=== PATIENT | female | born 1980 | race Caucasian/White ===

== ENCOUNTER 2017-01-01 04:34 | Emergency (ER) | payer OTHER ==
--- NOTE | 2017-01-01 04:44 | EDM.PDOC ---
ED HPI Behavioral Health - General Chief Complaint: Drug or Alcohol Abuse Stated Complaint: DRUG OVERDOSE-KAMILA AMB Time Seen by Provider: 01/01/17 04:38 Source of Information: Reports: Patient, EMS, Other (neighbour-friend of pt's boy friend) Exam Limitations: Reports: Combative/threatening - History of Present Illness INITIAL COMMENTS - FREE TEXT/NARRATIVE: friend states pt called him telling him she wants to end it all and took bunch of pills, found dorflex & benadryl & unknown ones. also Pt been associating with known drug users. pt arrived combative screaming trying to kick and P.D called and manage to calm Pt somewhat. poison control state dorflex (from [place] ) & beneadryl are anticholinergic need obsv for tachy-halluncination. benadryl bottle 100 2014. dorflex in blister pack of 10. unknown quantities taken. - Related Data Allergies Allergy/AdvReac Type Severity Reaction Status Date / Time acetaminophen [From Tylenol] Allergy Cannot Verified 01/01/17 04:45 Remember codeine Allergy Hives Verified 01/01/17 04:45 morphine Allergy Rash Verified 01/01/17 04:45 ciprofloxacin [From Cipro] AdvReac Rash Verified 01/01/17 04:45 ciprofloxacin HCl AdvReac Rash Verified 01/01/17 04:45 [From Cipro] bees Allergy Swelling Uncoded 01/01/17 04:45 Home Medications: Home Meds Albuterol [Proventil HFA] 2 puff INH ASDIRECTED PRN 08/16/16 [History] Ibuprofen 600 mg PO ASDIRECTED PRN 08/16/16 [History] Ketorolac [Toradol] 10 mg PO Q6H PRN 08/16/16 [History] Omeprazole 20 mg PO DAILY 08/16/16 [History] Past Medical History - Past Health History Medical/Surgical History: Denies Medical/Surgical History HEENT History: Reports: Sinusitis Other Cardiovascular History: states heart murmur is sometimes audible, sometimes not Respiratory History: Reports: Asthma, Bronchitis, recurrent Gastrointestinal History: Reports: Diverticulosis, GERD Other Gastrointestinal History: ? 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 OB/BYN History: 5 pregnancies Musculoskeletal History: Reports: Other (see below) Other Musculoskeletal History: muscle spasms, herniated disc Neurological History: Reports: Concussion Other Neuro History: unsure if she has had a concussion or not Psychiatric History: Reports: Anxiety, Depression, Emotional problems, Mood swings, PTSD Endocrine/Metabolic History: Reports: Other (see below) Other Endocrine/Metabolic History: while , not specifically diagnosed, hypoglycemia at times Hematologic History: Reports: Anemia Immunologic History: Reports: None Oncologic (Cancer) History: Reports: None Dermatologic History: Reports: None - Infectious Disease History Infectious Disease History: Reports: Chicken pox - Past Surgical History Head Surgeries/Procedures: Reports: None Other HEENT Surgeries/Procedures: two eye surgeries as a child Respiratory Surgical History: Reports: None Female Surgical History: Reports: section Other Female Surgeries/Procedures: x3 Social & Family History - Family History Family Medical History: Noncontributory - Tobacco Use Smoking Status *Q: Current Every Day Smoker Years of Tobacco use: 1 Packs/Tins Daily: 0.5 Used Tobacco, but Quit: Yes Month Tobacco Last Used: march Second Hand Smoke Exposure: No - Caffeine Use Caffeine Use: Reports: Soda - Alcohol Use Days Per Week of Alcohol Use: 3 Number of Drinks Per Day: 3 Total Drinks Per Week: 9 - Recreational Drug Use Recreational Drug Use: No - Sexual History Sexual History: Reports: Sexually active - Living Situation & Occupation Living situation: Reports: with family Occupation: unemployed ED ROS GENERAL - Review of Systems Review Of Systems: ROS reveals no pertinent complaints other than HPI. ED EXAM, BEHAVIORAL HEALTH - Physical Exam Exam: See Below Exam Limited By: Combative/threatening General Appearance: alert, WD/WN, other (screaming kicking combative requiring P.D presence) Ears: hearing grossly normal Throat/Mouth: Normal voice, No airway compromise Head: atraumatic Neck: normal inspection, full range of motion Respiratory/Chest: no respiratory distress Cardiovascular: regular rate, rhythm GI/Abdominal: soft, non tender Neurological: alert, no motor/sensory deficits Psychiatric: alert, normal cognition, tearful, agitated Skin Exam: Warm, Dry COURSE, BEHAVIORAL HEALTH COMP - Course Vital Signs: Last Vital Signs Temp 36.6 C 01/01/17 04:38 Pulse 93 01/01/17 05:33 Resp 18 01/01/17 05:33 BP 135/85 01/01/17 05:33 Pulse Ox 100 01/01/17 05:33 Orders, Labs, Meds: Active Orders 24 hr Category Date Time Status Potassium Chloride [KCl 10 MEQ in Water 100 ML] 10 meq Med 01/01/17 05:13 Active Premix Bag 1 bag IV ONETIME Sodium Chloride 0.9% [Normal Saline] 1,000 ml Med 01/01/17 05:13 Active IV .BOLUS Medication Orders Potassium Chloride 10 meq/ (Premix) 100 mls @ 100 mls/hr IV ONETIME ONE Stop: 01/01/17 06:12 Last Admin: 01/01/17 05:27 Dose: 100 mls/hr Sodium Chloride (Normal Saline) 1,000 mls @ 500 mls/hr IV .BOLUS ONE Stop: 01/01/17 07:12 Last Admin: 01/01/17 05:32 Dose: 500 mls/hr Laboratory Tests 01/01/17 01/01/17 01/01/17 Range/Units 04:40 04:40 04:50 WBC 6.9 (5.0-10.0) 10^3/uL RBC 3.99 L (4.2-5.4) 10^6/uL Hgb 12.0 (12.0-16.0) g/dL Hct 35.0 L (37.0-47.0) % MCV 87.7 (80-100) fL MCH 30.1 (27.0-34.0) pg MCHC 34.3 (33.0-35.0) g/dL Plt Count 324 (150-450) 10^3/uL Neut % (Auto) 57.9 (42.2-75.2) % Lymph % (Auto) 34.0 (20.5-50.1) % Edd[place] % (Auto) 6.9 (2-8) % Eos % (Auto) 0.9 L (1.0-3.0) % Baso % (Auto) 0.3 (0.0-1.0) % Sodium 138 (135-145) mmol/L Potassium 2.4 L (3.6-5.0) mmol/L Chloride 103 (101-111) mmol/L Carbon Dioxide 21.0 (21.0-31.0) mmol/L Anion Gap 16.4 BUN 5 L (7-18) mg/dL Creatinine 0.8 (0.6-1.3) mg/dL Est Cr Clr Drug Dosing TNP Estimated GFR (MDRD) > 60 BUN/Creatinine Ratio 6.25 Glucose 107 H (74-105) mg/dL Calcium 8.4 (8.4-10.2) mg/dl Total Bilirubin 0.4 (0.2-1.0) mg/dL AST 22 (10-42) IU/L ALT 13 (10-60) IU/L Alkaline Phosphatase 66 (42-121) IU/L Total Protein 7.6 (6.7-8.2) g/dl Albumin 4.1 (3.2-5.5) g/dl Globulin 3.5 Albumin/Globulin Ratio 1.17 Urine Color Light yellow (YELLOW) Urine Appearance Clear (CLEAR) Urine pH 5.5 (5.0-9.0) Ur Specific [place] <= 1.005 (1.005-1.030) Urine Protein Negative (NEGATIVE) Urine Glucose (UA) Negative (NEGATIVE) Urine Ketones Negative (NEGATIVE) Urine Occult Blood Trace-lysed H (NEGATIVE) Urine Nitrite Negative (NEGATIVE) Urine Bilirubin Negative (NEGATIVE) Urine Urobilinogen 0.2 (0.2-1.0) mg/dL Ur Leukocyte Esterase Negative (NEGATIVE) Urine HCG, Qual Salicylates 4.2 Urine Opiates Screen (NEGATIVE) Ur Oxycodone Screen (NEGATIVE) Urine Methadone Screen (NEGATIVE) Acetaminophen < 10.0 Ur Barbiturates Screen (NEGATIVE) U Tricyclic Antidepress (NEGATIVE) Ur Phencyclidine Scrn (NEGATIVE) Ur Amphetamine Screen (NEGATIVE) U Methamphetamines Scrn (NEGATIVE) Urine MDMA Screen (NEGATIVE) U Benzodiazepines Scrn (NEGATIVE) Urine Cocaine Screen (NEGATIVE) U Marijuana (THC) Screen (NEGATIVE) Ethyl Alcohol 154 mg/dL 01/01/17 01/01/17 Range/Units 04:50 04:50 WBC (5.0-10.0) 10^3/uL RBC (4.2-5.4) 10^6/uL Hgb (12.0-16.0) g/dL Hct (37.0-47.0) % MCV (80-100) fL MCH (27.0-34.0) pg MCHC (33.0-35.0) g/dL Plt Count (150-450) 10^3/uL Neut % (Auto) (42.2-75.2) % Lymph % (Auto) (20.5-50.1) % Eddy % (Auto) (2-8) % Eos % (Auto) (1.0-3.0) % Baso % (Auto) (0.0-1.0) % Sodium (135-145) mmol/L Potassium (3.6-5.0) mmol/L Chloride (101-111) mmol/L Carbon Dioxide (21.0-31.0) mmol/L Anion Gap BUN (7-18) mg/dL Creatinine (0.6-1.3) mg/dL Est Cr Clr Drug Dosing Estimated GFR (MDRD) BUN/Creatinine Ratio Glucose (74-105) mg/dL Calcium (8.4-10.2) mg/dl Total Bilirubin (0.2-1.0) mg/dL AST (10-42) IU/L ALT (10-60) IU/L Alkaline Phosphatase (42-121) IU/L Total Protein (6.7-8.2) g/dl Albumin (3.2-5.5) g/dl Globulin Albumin/Globulin Ratio Urine Color (YELLOW) Urine Appearance (CLEAR) Urine pH (5.0-9.0) Ur Specific [place] (1.005-1.030) Urine Protein (NEGATIVE) Urine Glucose (UA) (NEGATIVE) Urine Ketones (NEGATIVE) Urine Occult Blood (NEGATIVE) Urine Nitrite (NEGATIVE) Urine Bilirubin (NEGATIVE) Urine Urobilinogen (0.2-1.0) mg/dL Ur Leukocyte Esterase (NEGATIVE) Urine HCG, Qual Negative Salicylates Urine Opiates Screen Negative (NEGATIVE) Ur Oxycodone Screen Negative (NEGATIVE) Urine Methadone Screen Negative (NEGATIVE) Acetaminophen Ur Barbiturates Screen Negative (NEGATIVE) U Tricyclic Antidepress Negative (NEGATIVE) Ur Phencyclidine Scrn Negative (NEGATIVE) Ur Amphetamine Screen Negative (NEGATIVE) U Methamphetamines Scrn Negative (NEGATIVE) Urine MDMA Screen Negative (NEGATIVE) U Benzodiazepines Scrn Negative (NEGATIVE) Urine Cocaine Screen Negative (NEGATIVE) U Marijuana (THC) Screen Negative (NEGATIVE) Ethyl Alcohol mg/dL Medications Generic Name Dose Route Start Last Admin Trade Name Freq PRN Reason Stop Dose Admin Potassium Chloride 10 meq/ 100 mls @ 100 mls/hr 01/01/17 05:13 01/01/17 05:27 Premix IV 01/01/17 06:12 100 mls/hr ONETIME ONE Administration Sodium Chloride 1,000 mls @ 500 mls/hr 01/01/17 05:13 01/01/17 05:32 Normal Saline IV 01/01/17 07:12 500 mls/hr .BOLUS ONE Administration Re-Assessment/Re-Exam: re-exam: Pt still quite calm P.D left. case discussed with Dr Lewis @ who kindly accepted Pt. Departure - Departure Time of Disposition: 06:06 Disposition: DC/Tfer to Acute Hospital 02 Condition: good Clinical Impression: Anticholinergic drug overdose Qualifiers: Encounter type: initial encounter Injury intent: intentional self-harm Qualified Code(s): T44.3X2A - Poisoning by other parasympatholytics [ anticholinergics and antimuscarinics] and spasmolytics, intentional self-harm, initial encounter Alcohol intoxication Qualifiers: Complication of substance-induced condition: uncomplicated Qualified Code(s): F10.120 - Alcohol abuse with intoxication, uncomplicated Forms: Interfacility Transfer EMTALA - My Orders Last 24 Hours: My Active Orders 01/01/17 05:13 Potassium Chloride [KCl 10 MEQ in Water 100 ML] 10 meq Premix Bag 1 bag IV ONETIME Sodium Chloride 0.9% [Normal Saline] 1,000 ml IV .BOLUS - Assessment/Plan Last 24 Hours: My Active Orders 01/01/17 05:13 Potassium Chloride [KCl 10 MEQ in Water 100 ML] 10 meq Premix Bag 1 bag IV ONETIME Sodium Chloride 0.9% [Normal Saline] 1,000 ml IV .BOLUS
[2017-01-01 05:11] LABS: SODIUM,NA 138 mmol/L (135-145)
[2017-01-01 05:12] LABS: CHLORIDE,CL 103 mmol/L (101-111)
[2017-01-01] MEDS ORDERED: Potassium Chloride 10 MEQ in Premix Bag 1 BAG IV ONE (05:13)
[2017-01-01] MEDS ORDERED: Sodium Chloride 0.9% 1,000 ML IV ONE (05:13)
[2017-01-01 05:14] LABS: ACETAMINOPHEN < 10.0
[2017-01-01 06:07] VITALS: BP 118/85
== END 2017-01-01 06:50 ==
LOC: DL.ED 04:34
DX: T44.3X2A Poisoning by other parasympatholytics [anticholinergics and antimuscarinics] and spasmolytics, intentional self-harm, initial encounter (principal); F10.120 Alcohol abuse with intoxication, uncomplicated; J45.909 Unspecified asthma, uncomplicated; K21.9 Gastro-esophageal reflux disease without esophagitis; F41.9 Anxiety disorder, unspecified; F32.9 Major depressive disorder, single episode, unspecified; Z86.2 Personal history of diseases of the blood and blood-forming organs and certain disorders involving the immune mechanism; F17.210 Nicotine dependence, cigarettes, uncomplicated; Z88.5 Allergy status to narcotic agent; Z91.030 Bee allergy status; Z88.6 Allergy status to analgesic agent; Z79.899 Other long term (current) drug therapy
CPT/HCPCS: 36415; 80053; 80305; 81003; 81025; 85025; 96365; 96368; 99285; G0480; J3480; J7030

== ENCOUNTER 2017-02-09 09:48 | Emergency (ER) | payer OTHER ==
--- NOTE | 2017-02-09 10:20 | EDM.PDOC ---
ED HPI GENERAL MEDICAL PROBLEM - General Chief Complaint: Genitourinary Problem Stated Complaint: BLADDER INFECTION OR KIDNEY STONES Time Seen by Provider: 02/09/17 10:19 Source of Information: Reports: Patient, Old Records, RN, RN Notes Reviewed History Limitations: Reports: No Limitations - History of Present Illness INITIAL COMMENTS - FREE TEXT/NARRATIVE: Complaining of severe suprapubic pressure with burning and painful urination. Occasional flank pain right greater than left. Admits to chills and nausea. Denies fever or vomiting. Quality: Reports: Ache Severity: Severe Improves with: Reports: None Worsens with: Reports: None Associated Symptoms: Reports: No Other Symptoms Bladder Pain Score (Numeric/FACES): 10 - Related Data Allergies Allergy/AdvReac Type Severity Reaction Status Date / Time acetaminophen [From Tylenol] Allergy Cannot Verified 01/01/17 04:45 Remember codeine Allergy Hives Verified 01/01/17 04:45 morphine Allergy Rash Verified 01/01/17 04:45 ciprofloxacin [From Cipro] AdvReac Rash Verified 01/01/17 04:45 ciprofloxacin HCl AdvReac Rash Verified 01/01/17 04:45 [From Cipro] bees Allergy Swelling Uncoded 01/01/17 04:45 Home Meds: Home Meds Albuterol [Proventil HFA] 2 puff INH ASDIRECTED PRN 08/16/16 [History] Ibuprofen 600 mg PO ASDIRECTED PRN 08/16/16 [History] Escitalopram [Lexapro] 10 mg PO DAILY 02/09/17 [History] Gabapentin [Neurontin] 100 mg PO TID 02/09/17 [History] Pantoprazole Sodium [Protonix] 40 mg PO DAILY 02/09/17 [History] Past Medical History - Past Health History Medical/Surgical History: Denies Medical/Surgical History HEENT History: Reports: Sinusitis Other Cardiovascular History: states heart murmur is sometimes audible, sometimes not Respiratory History: Reports: Asthma, Bronchitis, Recurrent Gastrointestinal History: Reports: Diverticulosis, GERD Other Gastrointestinal History: ? 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/BYN History: 5 pregnancies Musculoskeletal History: Reports: Other (See Below) Other Musculoskeletal History: muscle spasms, herniated disc Neurological History: Reports: Concussion Other Neuro History: unsure if she has had a concussion or not Psychiatric History: Reports: Anxiety, Depression, Emotional Problems, Mood Swings, PTSD Endocrine/Metabolic History: Reports: Other (See Below) Other Endocrine/Metabolic History: while , not specifically diagnosed, hypoglycemia at times Hematologic History: Reports: Anemia Immunologic History: Reports: None Oncologic (Cancer) History: Reports: None Dermatologic History: Reports: None - Infectious Disease History Infectious Disease History: Reports: Chicken pox - Past Surgical History Head Surgeries/Procedures: Reports: None Other HEENT Surgeries/Procedures: two eye surgeries as a child Respiratory Surgical History: Reports: None Female Surgical History: Reports: section Other Female Surgeries/Procedures: x3 Social & Family History - Family History Family Medical History: Noncontributory - Tobacco Use Smoking Status *Q: Current Every Day Smoker Years of Tobacco use: 1 Packs/Tins Daily: 0.5 Used Tobacco, but Quit: Yes Month Tobacco Last Used: march Second Hand Smoke Exposure: No - Caffeine Use Caffeine Use: Reports: Soda - Alcohol Use Days Per Week of Alcohol Use: 3 Number of Drinks Per Day: 3 Total Drinks Per Week: 9 - Recreational Drug Use Recreational Drug Use: No - Sexual History Sexual History: Reports: Sexually active - Living Situation & Occupation Living situation: Reports: with family Occupation: unemployed ED ROS GENERAL - Review of Systems Review Of Systems: ROS reveals no pertinent complaints other than HPI. ED EXAM, RENAL/ - Physical Exam Exam: See Below Exam Limited By: No Limitations General Appearance: Other (uncomfortable appearing) Respiratory/Chest: No Respiratory Distress, Lungs Clear, Normal Breath Sounds, No Accessory Muscle Use, Chest Non-Tender Cardiovascular: Normal Peripheral Pulses, Regular Rate, Rhythm, No Edema, No Gallop, No JVD, No Murmur, No Rub GI/Abdominal: Tender (suprapbic tenderness) Back Exam: Normal Inspection, Full Range of Motion, NT Extremities: Normal Inspection, Normal Range of Motion, Non-Tender, Normal Capillary Refill, No Pedal Edema Neurological: Alert, Oriented, CN II-XII Intact, Normal Cognition, Normal Gait, Normal Reflexes, No Motor/Sensory Deficits Psychiatric: Anxious Skin Exam: Warm, Dry, Intact, Normal Color, No Rash Lymphatic: No Adenopathy Course - Vital Signs Last Recorded V/S: Last Vital Signs Temp 36.2 C 02/09/17 12:58 Pulse 58 L 02/09/17 12:58 Resp 20 02/09/17 10:28 BP 109/75 02/09/17 12:58 Pulse Ox 99 02/09/17 10:28 - Orders/Labs/Meds Labs: Laboratory Tests 02/09/17 02/09/17 02/09/17 Range/Units 10:48 10:48 11:02 WBC 12.1 H (5.0-10.0) 10^3/uL RBC 3.96 L (4.2-5.4) 10^6/uL Hgb 11.7 L (12.0-16.0) g/dL Hct 34.8 L (37.0-47.0) % MCV 87.9 (80-100) fL MCH 29.5 (27.0-34.0) pg MCHC 33.6 (33.0-35.0) g/dL Plt Count 285 (150-450) 10^3/uL Neut % (Auto) 74.7 (42.2-75.2) % Lymph % (Auto) 14.0 L (20.5-50.1) % Carbon % (Auto) 10.0 H (2-8) % Eos % (Auto) 1.1 (1.0-3.0) % Baso % (Auto) 0.2 (0.0-1.0) % Sodium 140 (135-145) mmol/L Potassium 3.6 (3.6-5.0) mmol/L Chloride 106 (101-111) mmol/L Carbon Dioxide 28.0 (21.0-31.0) mmol/L Anion Gap 9.6 BUN 7 (7-18) mg/dL Creatinine 0.5 L (0.6-1.3) mg/dL Est Cr Clr Drug Dosing 133.03 mL/min Estimated GFR (MDRD) > 60 Glucose 101 (74-105) mg/dL Calcium 8.1 L (8.4-10.2) mg/dl Urine Color (YELLOW) Urine Appearance (CLEAR) Urine pH (5.0-9.0) Ur Specific [place] (1.005-1.030) Urine Protein (NEGATIVE) Urine Glucose (UA) (NEGATIVE) Urine Ketones (NEGATIVE) Urine Occult Blood (NEGATIVE) Urine Nitrite (NEGATIVE) Urine Bilirubin (NEGATIVE) Urine Urobilinogen (0.2-1.0) mg/dL Ur Leukocyte Esterase (NEGATIVE) Urine RBC /HPF Urine WBC (0-5/HPF) /HPF Ur Epithelial Cells /HPF Urine Bacteria (0-FEW/HPF) /HPF Urine Mucus /LPF Urine HCG, Qual Urine Opiates Screen Negative (NEGATIVE) Ur Oxycodone Screen Negative (NEGATIVE) Urine Methadone Screen Negative (NEGATIVE) Ur Barbiturates Screen Negative (NEGATIVE) U Tricyclic Antidepress Negative (NEGATIVE) Ur Phencyclidine Scrn Negative (NEGATIVE) Ur Amphetamine Screen Negative (NEGATIVE) U Methamphetamines Scrn Negative (NEGATIVE) Urine MDMA Screen Negative (NEGATIVE) U Benzodiazepines Scrn Negative (NEGATIVE) Urine Cocaine Screen Negative (NEGATIVE) U Marijuana (THC) Screen Negative (NEGATIVE) 02/09/17 02/09/17 Range/Units 11:02 11:02 WBC (5.0-10.0) 10^3/uL RBC (4.2-5.4) 10^6/uL Hgb (12.0-16.0) g/dL Hct (37.0-47.0) % MCV (80-100) fL MCH (27.0-34.0) pg MCHC (33.0-35.0) g/dL Plt Count (150-450) 10^3/uL Neut % (Auto) (42.2-75.2) % Lymph % (Auto) (20.5-50.1) % Carbon % (Auto) (2-8) % Eos % (Auto) (1.0-3.0) % Baso % (Auto) (0.0-1.0) % Sodium (135-145) mmol/L Potassium (3.6-5.0) mmol/L Chloride (101-111) mmol/L Carbon Dioxide (21.0-31.0) mmol/L Anion Gap BUN (7-18) mg/dL Creatinine (0.6-1.3) mg/dL Est Cr Clr Drug Dosing mL/min Estimated GFR (MDRD) Glucose (74-105) mg/dL Calcium (8.4-10.2) mg/dl Urine Color Yellow (YELLOW) Urine Appearance Cloudy (CLEAR) Urine pH 8.5 (5.0-9.0) Ur Specific [place] 1.020 (1.005-1.030) Urine Protein 100 H (NEGATIVE) Urine Glucose (UA) Negative (NEGATIVE) Urine Ketones Negative (NEGATIVE) Urine Occult Blood Moderate H (NEGATIVE) Urine Nitrite Negative (NEGATIVE) Urine Bilirubin Negative (NEGATIVE) Urine Urobilinogen 0.2 (0.2-1.0) mg/dL Ur Leukocyte Esterase Large H (NEGATIVE) Urine RBC >100 H /HPF Urine WBC >100 H (0-5/HPF) /HPF Ur Epithelial Cells Rare /HPF Urine Bacteria Moderate H (0-FEW/HPF) /HPF Urine Mucus Rare /LPF Urine HCG, Qual Negative Urine Opiates Screen (NEGATIVE) Ur Oxycodone Screen (NEGATIVE) Urine Methadone Screen (NEGATIVE) Ur Barbiturates Screen (NEGATIVE) U Tricyclic Antidepress (NEGATIVE) Ur Phencyclidine Scrn (NEGATIVE) Ur Amphetamine Screen (NEGATIVE) U Methamphetamines Scrn (NEGATIVE) Urine MDMA Screen (NEGATIVE) U Benzodiazepines Scrn (NEGATIVE) Urine Cocaine Screen (NEGATIVE) U Marijuana (THC) Screen (NEGATIVE) Meds: Medications Discontinued Medications Generic Name Dose Route Start Last Admin Trade Name Freq PRN Reason Stop Dose Admin Sodium Chloride 1,000 mls @ 999 mls/hr 02/09/17 10:33 02/09/17 11:06 Normal Saline IV 02/09/17 11:33 999 mls/hr .BOLUS ONE Administration Ceftriaxone Sodium 1 gm/ 50 mls @ 100 mls/hr 02/09/17 12:44 02/09/17 12:55 Sodium Chloride IV 02/09/17 13:13 100 mls/hr ONETIME ONE Administration Ketorolac Tromethamine 30 mg 02/09/17 11:33 02/09/17 11:44 Toradol IVPUSH 02/09/17 11:34 30 mg ONETIME ONE Administration Ondansetron HCl 4 mg 02/09/17 10:33 02/09/17 11:08 Zofran IV 02/09/17 10:34 4 mg ONETIME ONE Administration Phenazopyridine HCl 190 mg 02/09/17 10:34 02/09/17 11:10 Urinary Pain Relief PO 02/09/17 10:35 200 mg ONETIME ONE Administration Sodium Chloride 10 ml 02/09/17 10:33 02/09/17 11:07 Saline Flush FLUSH 10 ml ASDIRECTED PRN Administration Keep Vein Open Tolterodine Tartrate 2 mg 02/09/17 10:35 02/09/17 11:15 Detrol PO 02/09/17 10:36 2 mg ONETIME ONE Administration Departure - Departure Time of Disposition: 12:43 Disposition: Home, Self-Care 01 Condition: good Clinical Impression: UTI (urinary tract infection) Qualifiers: Urinary tract infection type: acute cystitis Hematuria presence: with hematuria Qualified Code(s): N30.01 - Acute cystitis with hematuria - Discharge Information Instructions: Urinary Tract Infection, Adult, [id number] Referrals: PCP,None [Primary Care Provider] - Forms: ED Department Discharge Additional Instructions: Rx: Pyridium 200mg Rx: Cephalexin 500mg Follow up in clinic in 7 to 10 days for urine recheck.
[2017-02-09] MEDS ORDERED: Ondansetron 4 MG/2 ML SDV IV ONE (10:33)
[2017-02-09] MEDS ORDERED: Sodium Chloride 0.9% 1,000 ML IV ONE (10:33)
[2017-02-09] MEDS ORDERED: Sodium Chloride 0.9% 10 ML Syringe FLUSH PRN (10:33)
[2017-02-09] MEDS ORDERED: Phenazopyridine 95 MG Tab PO ONE (10:34)
[2017-02-09] MEDS ORDERED: Tolterodine 2 MG Tab PO ONE (10:35)
[2017-02-09 11:14] LABS: CHLORIDE,CL 106 mmol/L (101-111); SODIUM,NA 140 mmol/L (135-145)
[2017-02-09] MEDS ORDERED: Ketorolac 30 MG/ML SDV IVPUSH ONE (11:33)
--- NOTE | 2017-02-09 12:19 | CT ---
Clinical history: 36-year-old 134 pound female smoker with history of "kidney stones", hematuria and now suprapubic pain (right greater than left flank pain). No sign of urolithiasis on previous CT sc an 17 March 2016. TECHNIQUE: Volume acquisition of data emergency unenhanced CT exam of the abdomen/pelvis (kidneys/ur eters/bladder) obtained with patient lying supine on the Siemens multi slice CT scanner [place], [place]. All data archived in the PACS system for storage, reformatting and study. Interpretation: 1. Several small phleboliths left side of the pelvis and a solitary large phlebolith posteriorly pel vis right of midline unchanged since 17 March 2016 exam. 2. Normal reniform size, axis and configuration. Chronic mild pyelectasis but no signs of nephrolith iasis or caliectasis/ureterectasis. No renal cortical mass lesion. 3. Large midline uterus small ovarian cysts bilaterally. No adnexal mass lesions or free fluid. 4. No pelvic or abdominal mass lesion, signs of retroperitoneal lymphadenopathy, inflammatory "dirty " peritoneal fat, mechanical bowel obstruction, ascites or free intraperitoneal air. Normal appendix RLQ 5. Chronic lower lumbar L5-S1 disc disease. Normal caliber abdominal aorta i.e. no aneurysm. Normal heart. Lung bases clear. 6. Gallbladder, unenhanced liver, stomach, spleen, pancreas and adrenal glands unremarkable. CONCLUSION: No sign of urolithiasis or obstructive uropathy. L5-S1 disc disease.
[2017-02-09] MEDS ORDERED: cefTRIAXone 1 GM in Sodium Chloride 0.9% 50 ML IV ONE (12:44)
[2017-02-09 12:59] VITALS: BP 109/75
== END 2017-02-09 13:26 | disposition home or self-care (01) ==
LOC: DL.ED 09:48
DX: N30.01 Acute cystitis with hematuria (principal); K21.9 Gastro-esophageal reflux disease without esophagitis; J45.909 Unspecified asthma, uncomplicated; F41.9 Anxiety disorder, unspecified; F17.210 Nicotine dependence, cigarettes, uncomplicated; Z88.6 Allergy status to analgesic agent; Z88.8 Allergy status to other drugs, medicaments and biological substances; Z79.899 Other long term (current) drug therapy
CPT/HCPCS: 36415; 74176; 80048; 80305; 81001; 81025; 85025; 87086; 96361; 96365; 96375; 99284; A9270; J0696; J1885; J2405; J7030; J7050

== ENCOUNTER 2017-03-01 13:51 | Emergency (ER) | payer OTHER ==
[2017-03-01 15:14] LABS: CHLORIDE,CL 103 mmol/L (101-111); SODIUM,NA 135 mmol/L (135-145)
--- NOTE | 2017-03-01 15:47 | EDM.PDOC ---
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 She has not been seen by the OB yet. She states she's been having lower abdominal pain 4 weak and half that waxes and wanes in intensity it is sharp in nature and is nonradiating she states that she has had no vaginal discharge with this pain.does have a history of premature And was sent herefor evaluation as she has not established care with the OB yet she denies fever or chills nausea or vomiting patient does report that she has a positive and has never received a RhoGAM shot and all her pregnancies Location: Reports: Abdomen Severity: Mild Improves with: Reports: None Worsens with: Reports: None - Related Data Allergies Allergy/AdvReac Type Severity Reaction Status Date / Time acetaminophen [From Tylenol] Allergy Cannot Verified 03/01/17 16:37 Remember codeine Allergy Hives Verified 03/01/17 16:37 morphine Allergy Rash Verified 03/01/17 16:37 ciprofloxacin [From Cipro] AdvReac Rash Verified 03/01/17 16:37 ciprofloxacin HCl AdvReac Rash Verified 03/01/17 16:37 [From Cipro] bees Allergy Swelling Uncoded 01/01/17 04:45 Home Meds: Home Meds Ibuprofen 600 mg PO ASDIRECTED PRN 08/16/16 [History] Past Medical History - Past Health History Medical/Surgical History: Denies Medical/Surgical History HEENT History: Reports: Sinusitis Other Cardiovascular History: states heart murmur is sometimes audible, sometimes not Respiratory History: Reports: Asthma, Bronchitis, Recurrent Gastrointestinal History: Reports: Diverticulosis, GERD Other Gastrointestinal History: ? 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: 5 pregnancies Musculoskeletal History: Reports: Other (See Below) Other Musculoskeletal History: muscle spasms, herniated disc Neurological History: Reports: Concussion Other Neuro History: unsure if she has had a concussion or not Psychiatric History: Reports: Anxiety, Depression, Emotional Problems, Mood Swings, PTSD Endocrine/Metabolic History: Reports: Other (See Below) Other Endocrine/Metabolic History: while , not specifically diagnosed, hypoglycemia at times Hematologic History: Reports: Anemia Immunologic History: Reports: None Oncologic (Cancer) History: Reports: None Dermatologic History: Reports: None - Infectious Disease History Infectious Disease History: Reports: Chicken Pox - Past Surgical History HEENT Surgical History: Reports: Eye Surgery Female Surgical History: Reports: Section Social & Family History - Family History Family Medical History: Noncontributory - Tobacco Use Smoking Status *Q: Current Every Day Smoker Years of Tobacco use: 1 Packs/Tins Daily: 0.5 Used Tobacco, but Quit: Yes Month Tobacco Last Used: march Second Hand Smoke Exposure: No - Caffeine Use Caffeine Use: Reports: Soda - Alcohol Use Days Per Week of Alcohol Use: 3 Number of Drinks Per Day: 3 Total Drinks Per Week: 9 - Recreational Drug Use Recreational Drug Use: No - Sexual History Sexual History: Reports: Sexually Active - Living Situation & Occupation Living situation: Reports: with Family Occupation: Unemployed ED ROS GENERAL - Review of Systems Review Of Systems: ROS reveals no pertinent complaints other than HPI. ED EXAM - Physical Exam Exam: See Below Exam Limited By: No Limitations General Appearance: Alert, WD/WN, No Apparent Distress Nose: Normal Inspection, Normal Mucosa, No Blood Throat/Mouth: Normal Inspection, Normal Lips, Normal Teeth, Normal Gums, Normal Oropharynx, Normal Voice, No Airway Compromise Head: Atraumatic, Normocephalic Neck: Normal Inspection, Supple, Non-Tender, Full Range of Motion Respiratory/Chest: No Respiratory Distress, Lungs Clear, Normal Breath Sounds, No Accessory Muscle Use, Chest Non-Tender Cardiovascular: Normal Peripheral Pulses, Regular Rate, Rhythm, No Edema, No Gallop, No JVD, No Murmur, No Rub GI/Abdominal: Normal Bowel Sounds, Soft, Non-Tender, No Organomegaly, No Distention, No Abnormal Bruit, No Mass Rectal Exam: Normal Exam (Female) Exam: Normal External Exam, Normal Speculum Exam, Enlarged Uterus. No: Adnexal Tenderness, Cervical Dilatation, Cervical Discharge, Cervix Motion Tenderness, Vaginal Bleeding, Vaginal Discharge Extremities: Normal Inspection, Normal Range of Motion, Non-Tender, Normal Capillary Refill, No Pedal Edema Neurological: Alert, Oriented, CN II-XII Intact, Normal Cognition, Normal Gait, Normal Reflexes, No Motor/Sensory Deficits Psychiatric: Normal Affect, Normal Mood Skin Exam: Warm, Dry, Intact, Normal Color, No Rash Course - Vital Signs Last Recorded V/S: Last Vital Signs Temp 97.2 F 03/01/17 15:15 Pulse 66 03/01/17 15:15 Resp 18 03/01/17 15:15 BP 97/62 03/01/17 15:15 Pulse Ox 100 03/01/17 15:15 - Orders/Labs/Meds Orders: Active Orders 24 hr Category Date Time Status OB Ltd 1 or More Fetus [US] Urgent Exams 03/01/17 14:39 Ordered OB Transvaginal [US] Routine Exams 03/01/17 16:24 Ordered CHLAMYDIA TRACHOMATIS/GC AMPLF Stat Lab 03/01/17 15:35 Received Labs: Laboratory Tests 03/01/17 03/01/17 03/01/17 Range/Units 14:34 14:47 14:47 WBC 6.4 (5.0-10.0) 10^3/uL RBC 3.90 L (4.2-5.4) 10^6/uL Hgb 11.5 L (12.0-16.0) g/dL Hct 35.0 L (37.0-47.0) % MCV 89.7 (80-100) fL MCH 29.5 (27.0-34.0) pg MCHC 32.9 L (33.0-35.0) g/dL Plt Count 266 (150-450) 10^3/uL Neut % (Auto) 60.8 (42.2-75.2) % Lymph % (Auto) 25.7 (20.5-50.1) % [place] % (Auto) 11.0 H (2-8) % Eos % (Auto) 2.2 (1.0-3.0) % Baso % (Auto) 0.3 (0.0-1.0) % Add Manual Diff Yes Neutrophils % (Manual) 65 % Band Neutrophils % 2 % Lymphocytes % (Manual) 24 % Monocytes % (Manual) 7 % Eosinophils % (Manual) 2 % Sodium (135-145) mmol/L Potassium (3.6-5.0) mmol/L Chloride (101-111) mmol/L Carbon Dioxide (21.0-31.0) mmol/L Anion Gap BUN (7-18) mg/dL Creatinine (0.6-1.3) mg/dL Est Cr Clr Drug Dosing Estimated GFR (MDRD) BUN/Creatinine Ratio Glucose (74-105) mg/dL Calcium (8.4-10.2) mg/dl Total Bilirubin (0.2-1.0) mg/dL AST (10-42) IU/L ALT (10-60) IU/L Alkaline Phosphatase (42-121) IU/L Total Protein (6.7-8.2) g/dl Albumin (3.2-5.5) g/dl Globulin Albumin/Globulin Ratio HCG, Quant > 1370 H (0-25) mIU/ml Beta HCG, Quant 8276 mIU/ml Urine Color Yellow (YELLOW) Urine Appearance Slightly cloudy (CLEAR) Urine pH 6.5 (5.0-9.0) Ur Specific [place] 1.010 (1.005-1.030) Urine Protein Negative (NEGATIVE) Urine Glucose (UA) Negative (NEGATIVE) Urine Ketones Negative (NEGATIVE) Urine Occult Blood Trace-intact H (NEGATIVE) Urine Nitrite Negative (NEGATIVE) Urine Bilirubin Negative (NEGATIVE) Urine Urobilinogen 1.0 (0.2-1.0) mg/dL Ur Leukocyte Esterase Negative (NEGATIVE) Urine RBC 0-5 /HPF Urine WBC 0-5 (0-5/HPF) /HPF Ur Epithelial Cells Few /HPF Urine Bacteria Rare (0-FEW/HPF) /HPF Urine Mucus Rare /LPF 03/01/ Range/Units 14:47 WBC (5.0-10.0) 10^3/uL RBC (4.2-5.4) 10^6/uL Hgb (12.0-16.0) g/dL Hct (37.0-47.0) % MCV (80-100) fL MCH (27.0-34.0) pg MCHC (33.0-35.0) g/dL Plt Count (150-450) 10^3/uL Neut % (Auto) (42.2-75.2) % Lymph % (Auto) (20.5-50.1) % [place] % (Auto) (2-8) % Eos % (Auto) (1.0-3.0) % Baso % (Auto) (0.0-1.0) % Add Manual Diff Neutrophils % (Manual) % Band Neutrophils % % Lymphocytes % (Manual) % Monocytes % (Manual) % Eosinophils % (Manual) % Sodium 135 (135-145) mmol/L Potassium 3.5 L (3.6-5.0) mmol/L Chloride 103 (101-111) mmol/L Carbon Dioxide 26.0 (21.0-31.0) mmol/L Anion Gap 9.5 BUN 10 (7-18) mg/dL Creatinine 0.6 (0.6-1.3) mg/dL Est Cr Clr Drug Dosing TNP Estimated GFR (MDRD) > 60 BUN/Creatinine Ratio 16.66 Glucose 79 (74-105) mg/dL Calcium 8.5 (8.4-10.2) mg/dl Total Bilirubin 0.6 (0.2-1.0) mg/dL AST 14 (10-42) IU/L ALT 12 (10-60) IU/L Alkaline Phosphatase 53 (42-121) IU/L Total Protein 7.1 (6.7-8.2) g/dl Albumin 3.7 (3.2-5.5) g/dl Globulin 3.4 Albumin/Globulin Ratio 1.09 HCG, Quant (0-25) mIU/ml Beta HCG, Quant mIU/ml Urine Color (YELLOW) Urine Appearance (CLEAR) Urine pH (5.0-9.0) Ur Specific [place] (1.005-1.030) Urine Protein (NEGATIVE) Urine Glucose (UA) (NEGATIVE) Urine Ketones (NEGATIVE) Urine Occult Blood (NEGATIVE) Urine Nitrite (NEGATIVE) Urine Bilirubin (NEGATIVE) Urine Urobilinogen (0.2-1.0) mg/dL Ur Leukocyte Esterase (NEGATIVE) Urine RBC /HPF Urine WBC (0-5/HPF) /HPF Ur Epithelial Cells /HPF Urine Bacteria (0-FEW/HPF) /HPF Urine Mucus /LPF - Radiology Interpretation Free Text/Narrative:: US 1st trimester - Shows 5 week 2 day sack with no pole- possible bliighted oval per radiology - Re-Assessments/Exams Free Text/Narrative Re-Assessment/Exam: on reassessment the patient was told of the results of the ultrasound and was told of the importance of followup in the next 24 hours for further evaluation and possible D&C Patient was advised that she will need f/u HCG and US as well. OB nutrition services assistant Dr. Garcia was contacted. and no antibiotics needed. Patient to f/u with OB as directed. 03/01/17 17:03 03/01/17 17:15 03/01/17 17:26 Departure - Departure Time of Disposition: 16:59 Disposition: Home, Self-Care 01 Condition: good Clinical Impression: Blighted ovum - Discharge Information Instructions: Blighted Ovum Forms: ED Department Discharge Additional Instructions: Discharge Diagnosis: Blighted Ovum Abd Pain Use Diclofenac for pain do not mix with Motrin ibuprofen Advil or Aleve [facility] first thing in the morning. Must be seen by OB in next 24 hours. Return for increased pain/ uncontrolled vaginal bleeding or worsening symptoms. - My Orders Last 24 Hours: My Active Orders 03/01/17 14:39 OB Ltd 1 or More Fetus [US] Urgent 03/01/17 15:35 CHLAMYDIA TRACHOMATIS/GC AMPLF Stat 03/01/17 16:24 OB Transvaginal [US] Routine - Assessment/Plan Last 24 Hours: My Active Orders 03/01/17 14:39 OB Ltd 1 or More Fetus [US] Urgent 03/01/17 15:35 CHLAMYDIA TRACHOMATIS/GC AMPLF Stat 03/01/17 16:24 OB Transvaginal [US] Routine
[2017-03-01 17:00] VITALS: BP 101/69
--- NOTE | 2017-03-01 17:15 | US ---
Clinical history: 36-year-old multigravida female with lower pelvic pain ("positive" home test). Interpretation: Midline eccentrically placed gestational sac, anteriorly uterine wall that has a uni formly thick chorionic "rind" but no identifiable intraluminal yolk sac or pole. Extremely early ? Blighted ovum? No evidence of subchorionic bleed. Dominant 2.8 cm cyst in the right ovary may represent corpus luteum of . (left ovary not de fined). No free fluid in the cul-de-sac. CONCLUSION: Technically "difficult "exam reveals a 5 week 2 day size but empty intrauterine gestatio nal sac. Close clinical and laboratory correlation please.
== END 2017-03-01 17:46 | disposition home or self-care (01) ==
LOC: DL.ED 13:51
DX: O09.521 Supervision of elderly multigravida, first trimester (principal); O02.0 Blighted ovum and nonhydatidiform mole; O99.341 Other mental disorders complicating pregnancy, first trimester; F41.9 Anxiety disorder, unspecified; F32.9 Major depressive disorder, single episode, unspecified; O99.611 Diseases of the digestive system complicating pregnancy, first trimester; K21.9 Gastro-esophageal reflux disease without esophagitis; O99.011 Anemia complicating pregnancy, first trimester; O99.511 Diseases of the respiratory system complicating pregnancy, first trimester; J45.909 Unspecified asthma, uncomplicated; O99.331 Smoking (tobacco) complicating pregnancy, first trimester; F17.210 Nicotine dependence, cigarettes, uncomplicated; Z88.6 Allergy status to analgesic agent; Z88.5 Allergy status to narcotic agent; Z91.030 Bee allergy status; Z88.1 Allergy status to other antibiotic agents; Z98.890 Other specified postprocedural states; Z3A.01 Less than 8 weeks gestation of pregnancy
CPT/HCPCS: 36415; 76815; 76817; 80053; 81001; 84702; 85025; 87210; 87491; 87591; 99284

== ENCOUNTER 2018-03-15 17:44 | Emergency (ER) | payer OTHER ==
[2018-03-15] MEDS ORDERED: traMADol 50 MG Tab PO ONE ×2 (17:45→20:55)
--- NOTE | 2018-03-15 18:48 | EDM.PDOC ---
Scribed by Misti Smith 03/15/18 1836 for Lazarus Sharma MD <Lazarus Sharma - Last Filed: 03/15/18 18:48> ED HPI GENERAL MEDICAL PROBLEM - General Chief Complaint: Lower Extremity Injury/Pain Stated Complaint: [id number] PROBLEMS WITH FOOT AND LEG Time Seen by Provider: 03/15/18 17:51 Source of Information: Reports: Patient, RN, RN Notes Reviewed History Limitations: Reports: No Limitations - History of Present Illness INITIAL COMMENTS - FREE TEXT/NARRATIVE: Patient presents to ER with complaint of lower extremity pain that began 4 days ago with numbness and tingling and swelling and left toes 1 through 5 without injury. On the second day the swelling decreased but the left first toe remained partially numb and tingling and she developed pain in the left buttock radiating to the left foot. 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 She has had increased low back pain recently, which she treated with a Lidocaine patch yesterday with some relief of the back pain, but no change in the leg change. She felt some tissue swelling in the left posterior thigh, which was tender. She denies any recent injury, fever, chills, loss of bowel or bladder or saddle area numbness. She admits to recurrent episodes of anxiety and shortness of breath. 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) (Lidocaine patch) - Related Data Allergies Allergy/AdvReac Type Severity Reaction Status Date / Time acetaminophen [From Tylenol] Allergy Cannot Verified 03/01/17 16:37 Remember codeine Allergy Hives Verified 03/01/17 16:37 morphine Allergy Rash Verified 03/01/17 16:37 ciprofloxacin [From Cipro] AdvReac Rash Verified 03/01/17 16:37 ciprofloxacin HCl AdvReac Rash Verified 03/01/17 16:37 [From Cipro] bees Allergy Swelling Uncoded 01/01/17 04:45 Home Meds: Home Meds Ibuprofen 600 mg PO ASDIRECTED PRN 08/16/16 [History] Past Medical History - Past Health History Medical/Surgical History: Denies Medical/Surgical History HEENT History: Reports: Sinusitis Other Cardiovascular History: states heart murmur is sometimes audible, sometimes not Respiratory History: Reports: Asthma, Bronchitis, Recurrent Gastrointestinal History: Reports: Diverticulosis, GERD Other Gastrointestinal History: ? 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 Musculoskeletal History: Reports: Other (See Below) Other Musculoskeletal History: muscle spasms, herniated disc Neurological History: Reports: Concussion Other Neuro History: unsure if she has had a concussion or not Psychiatric History: Reports: Anxiety, Depression, Emotional Problems, Mood Swings, PTSD Endocrine/Metabolic History: Reports: Other (See Below) Other Endocrine/Metabolic History: while , not specifically diagnosed, hypoglycemia at times Hematologic History: Reports: Anemia Immunologic History: Reports: None Oncologic (Cancer) History: Reports: None Dermatologic History: Reports: None - Infectious Disease History Infectious Disease History: Reports: Chicken Pox - Past Surgical History HEENT Surgical History: Reports: Eye Surgery Female Surgical History: Reports: Section Social & Family History - Family History Family Medical History: Noncontributory - Caffeine Use Caffeine Use: Reports: Soda - Sexual History Sexual History: Reports: Sexually Active - Living Situation & Occupation Living situation: Reports: with Family Occupation: Unemployed Review of Systems - Review of Systems Review Of Systems: ROS reveals no pertinent complaints other than HPI. ED EXAM, GENERAL - Physical Exam Exam: See Below Exam Limited By: No Limitations General Appearance: Alert, WD/WN, No Apparent Distress Head: Atraumatic, Normocephalic Neck: Normal Inspection, Supple, Non-Tender, Full Range of Motion Respiratory/Chest: No Respiratory Distress, Lungs Clear, Normal Breath Sounds, No Accessory Muscle Use, Chest Non-Tender Cardiovascular: Normal Peripheral Pulses, Regular Rate, Rhythm, No Edema, No Gallop, No JVD, No Murmur, No Rub Back Exam: Paraspinal Tenderness (lumbar), Other (area of back pain is nonteder to palpation of the bony prominences). No: CVA Tenderness (L), CVA Tenderness ( R), Vertebral Tenderness Extremities: No Pedal Edema, Normal Capillary Refill, Leg Pain (left first toe, and left posterior thigh), Limited Range of Motion (left hip). No: Joint Swelling, Anamika's Sign Neurological: Alert, Oriented, CN II-XII Intact, Normal Cognition, No Motor/ Sensory Deficits, Other (slight subjective numb tingling sensation to palpation of the left first toe. Antalgic gait favoring left lower extremity. ) Psychiatric: Normal Affect, Normal Mood Skin Exam: Warm, Dry, Intact, Normal Color, No Rash Course - Vital Signs Last Recorded V/S: Last Vital Signs Temp 99.6 F 03/15/18 17:50 Pulse 74 03/15/18 20:21 Resp 27 H 03/15/18 20:21 BP 151/102 H 03/15/18 20:21 Pulse Ox 100 03/15/18 20:21 - Orders/Labs/Meds Orders: Active Orders 24 hr Category Date Time Status EKG Documentation Completion [RC] STAT Care 03/15/18 20:04 Active Peripheral IV Care [RC] . DIRECTED Care 03/15/18 19:41 Active HCG QUALITATIVE,URINE [URCHEM] Stat Lab 03/15/18 18:45 Ordered UA W/MICROSCOPIC [URIN] Stat Lab 03/15/18 18:45 Ordered Sodium Chloride 0.9% [Saline Flush] Med 03/15/18 19:41 Active 10 ml FLUSH ASDIRECTED PRN Peripheral IV Insertion Adult [OM.PC] Stat Oth 03/15/18 19:41 Ordered Medication Orders Sodium Chloride (Saline Flush) 10 ml FLUSH ASDIRECTED PRN PRN Reason: Keep Vein Open Labs: Laboratory Tests 03/15/18 03/15/18 03/15/18 Range/Units 18:44 18:44 18:44 WBC 6.4 (5.0-10.0) 10^3/uL RBC 4.20 (4.2-5.4) 10^6/uL Hgb 12.0 (12.0-16.0) g/dL Hct 36.3 L (37.0-47.0) % MCV 86.4 D (80-100) fL MCH 28.6 (27.0-34.0) pg MCHC 33.1 (33.0-35.0) g/dL Plt Count 243 (150-450) 10^3/uL Neut % (Auto) 57.8 (42.2-75.2) % Lymph % (Auto) 30.8 (20.5-50.1) % [place] % (Auto) 8.9 H (2-8) % Eos % (Auto) 2.2 (1.0-3.0) % Baso % (Auto) 0.3 (0.0-1.0) % PT (9.0-12.0) SEC INR (0.9-1.2) D-Dimer, Quantitative 1200 H (0-400) ng/mL Sodium 139 (135-145) mmol/L Potassium 3.7 (3.6-5.0) mmol/L Chloride 106 (101-111) mmol/L Carbon Dioxide 28.0 (21.0-31.0) mmol/L Anion Gap 8.7 BUN 10 (7-18) mg/dL Creatinine 0.7 (0.6-1.3) mg/dL Est Cr Clr Drug Dosing 94.10 mL/min Estimated GFR (MDRD) > 60 BUN/Creatinine Ratio 14.28 Glucose 83 (74-105) mg/dL Calcium 9.0 (8.4-10.2) mg/dl Total Bilirubin 0.2 (0.2-1.0) mg/dL AST 16 (10-42) IU/L ALT 12 (10-60) IU/L Alkaline Phosphatase 68 (42-121) IU/L Troponin I (0.00-0.02) ng/ml Total Protein 7.6 (6.7-8.2) g/dl Albumin 4.0 (3.2-5.5) g/dl Globulin 3.6 Albumin/Globulin Ratio 1.11 Urine Color (YELLOW) Urine Appearance (CLEAR) Urine pH (5.0-9.0) Ur Specific [place] (1.005-1.030) Urine Protein (NEGATIVE) Urine Glucose (UA) (NEGATIVE) Urine Ketones (NEGATIVE) Urine Occult Blood (NEGATIVE) Urine Nitrite (NEGATIVE) Urine Bilirubin (NEGATIVE) Urine Urobilinogen (0.2-1.0) mg/dL Ur Leukocyte Esterase (NEGATIVE) Urine RBC /HPF Urine WBC (0-5/HPF) /HPF Ur Epithelial Cells /HPF Urine Bacteria (0-FEW/HPF) /HPF Urine Mucus /LPF Urine HCG, Qual 03/15/18 03/15/18 03/15/18 Range/Units 18:44 18:44 18:45 WBC (5.0-10.0) 10^3/uL RBC (4.2-5.4) 10^6/uL Hgb (12.0-16.0) g/dL Hct (37.0-47.0) % MCV (80-100) fL MCH (27.0-34.0) pg MCHC (33.0-35.0) g/dL Plt Count (150-450) 10^3/uL Neut % (Auto) (42.2-75.2) % Lymph % (Auto) (20.5-50.1) % [place] % (Auto) (2-8) % Eos % (Auto) (1.0-3.0) % Baso % (Auto) (0.0-1.0) % PT 10.7 (9.0-12.0) SEC INR 1.1 (0.9-1.2) D-Dimer, Quantitative (0-400) ng/mL Sodium (135-145) mmol/L Potassium (3.6-5.0) mmol/L Chloride (101-111) mmol/L Carbon Dioxide (21.0-31.0) mmol/L Anion Gap BUN (7-18) mg/dL Creatinine (0.6-1.3) mg/dL Est Cr Clr Drug Dosing mL/min Estimated GFR (MDRD) BUN/Creatinine Ratio Glucose (74-105) mg/dL Calcium (8.4-10.2) mg/dl Total Bilirubin (0.2-1.0) mg/dL AST (10-42) IU/L ALT (10-60) IU/L Alkaline Phosphatase (42-121) IU/L Troponin I < 0.02 (0.00-0.02) ng/ml Total Protein (6.7-8.2) g/dl Albumin (3.2-5.5) g/dl Globulin Albumin/Globulin Ratio Urine Color Yellow (YELLOW) Urine Appearance Clear (CLEAR) Urine pH 7.0 (5.0-9.0) Ur Specific [place] 1.020 (1.005-1.030) Urine Protein Negative (NEGATIVE) Urine Glucose (UA) Negative (NEGATIVE) Urine Ketones Negative (NEGATIVE) Urine Occult Blood Trace-intact H (NEGATIVE) Urine Nitrite Negative (NEGATIVE) Urine Bilirubin Negative (NEGATIVE) Urine Urobilinogen 0.2 (0.2-1.0) mg/dL Ur Leukocyte Esterase Negative (NEGATIVE) Urine RBC 0-5 /HPF Urine WBC Not seen (0-5/HPF) /HPF Ur Epithelial Cells Few /HPF Urine Bacteria Rare (0-FEW/HPF) /HPF Urine Mucus Few H /LPF Urine HCG, Qual 03/15/18 Range/Units 18:45 WBC (5.0-10.0) 10^3/uL RBC (4.2-5.4) 10^6/uL Hgb (12.0-16.0) g/dL Hct (37.0-47.0) % MCV (80-100) fL MCH (27.0-34.0) pg MCHC (33.0-35.0) g/dL Plt Count (150-450) 10^3/uL Neut % (Auto) (42.2-75.2) % Lymph % (Auto) (20.5-50.1) % [place] % (Auto) (2-8) % Eos % (Auto) (1.0-3.0) % Baso % (Auto) (0.0-1.0) % PT (9.0-12.0) SEC INR (0.9-1.2) D-Dimer, Quantitative (0-400) ng/mL Sodium (135-145) mmol/L Potassium (3.6-5.0) mmol/L Chloride (101-111) mmol/L Carbon Dioxide (21.0-31.0) mmol/L Anion Gap BUN (7-18) mg/dL Creatinine (0.6-1.3) mg/dL Est Cr Clr Drug Dosing mL/min Estimated GFR (MDRD) BUN/Creatinine Ratio Glucose (74-105) mg/dL Calcium (8.4-10.2) mg/dl Total Bilirubin (0.2-1.0) mg/dL AST (10-42) IU/L ALT (10-60) IU/L Alkaline Phosphatase (42-121) IU/L Troponin I (0.00-0.02) ng/ml Total Protein (6.7-8.2) g/dl Albumin (3.2-5.5) g/dl Globulin Albumin/Globulin Ratio Urine Color (YELLOW) Urine Appearance (CLEAR) Urine pH (5.0-9.0) Ur Specific [place] (1.005-1.030) Urine Protein (NEGATIVE) Urine Glucose (UA) (NEGATIVE) Urine Ketones (NEGATIVE) Urine Occult Blood (NEGATIVE) Urine Nitrite (NEGATIVE) Urine Bilirubin (NEGATIVE) Urine Urobilinogen (0.2-1.0) mg/dL Ur Leukocyte Esterase (NEGATIVE) Urine RBC /HPF Urine WBC (0-5/HPF) /HPF Ur Epithelial Cells /HPF Urine Bacteria (0-FEW/HPF) /HPF Urine Mucus /LPF Urine HCG, Qual Negative Meds: Medications Generic Name Dose Route Start Last Admin Trade Name Freq PRN Reason Stop Dose Admin Sodium Chloride 10 ml 03/15/18 19:41 Saline Flush FLUSH ASDIRECTED PRN Keep Vein Open Discontinued Medications Generic Name Dose Route Start Last Admin Trade Name Freq PRN Reason Stop Dose Admin Diphenhydramine HCl 50 mg 03/15/18 20:15 03/15/18 20:20 Benadryl IVPUSH 03/15/18 20:16 50 mg ONETIME ONE Administration Iopamidol 100 ml 03/15/18 19:39 03/15/18 19:59 [id number] (76%) IVPUSH 03/15/18 19:40 60 ml ONETIME ONE Administration Tramadol HCl 50 mg 03/15/18 20:55 Ultram PO 03/15/18 20:56 ONETIME ONE Departure - Departure Disposition: Home, Self-Care 01 Clinical Impression: Anxiety, Elevated d-dimer - Discharge Information Instructions: Sciatica, [id number], Panic Attack, [id number], Muscle Strain , [id number], Pain Medicine Instructions, [id number] Referrals: Lizabeth Loaiza NP [Primary Care Provider] - Forms: ED Department Discharge Additional Instructions: Follow up with your primary care facility tomorrow for Ultrasound and possible MRI. RX: Tramadol - My Orders Last 24 Hours: My Active Orders 03/15/18 19:41 Peripheral IV Care [RC] . DIRECTED Sodium Chloride 0.9% [Saline Flush] 10 ml FLUSH ASDIRECTED PRN Peripheral IV Insertion Adult [OM.PC] Stat 03/15/18 20:04 EKG Documentation Completion [RC] STAT - Assessment/Plan Last 24 Hours: My Active Orders 03/15/18 19:41 Peripheral IV Care [RC] . DIRECTED Sodium Chloride 0.9% [Saline Flush] 10 ml FLUSH ASDIRECTED PRN Peripheral IV Insertion Adult [OM.PC] Stat 03/15/18 20:04 EKG Documentation Completion [RC] STAT <Yolanda Watters - Last Filed: 03/15/18 21:00> EKG INTERPRETATION EKG Date: 03/15/18 Time: 20:02 Rhythm: NSR Rate (Beats/Min): 72 Paton: LAD-Left Paton Deviation P-Wave: Present QRS: Normal ST-T: Normal QT: Normal Comparison: NA - No Prior EKG Course - Radiology Interpretation Free Text/Narrative:: Chest CT: No acute findings See rad report - Re-Assessments/Exams Free Text/Narrative Re-Assessment/Exam: 03/15/18 20:59 Dr. Barry came to the ER and evaluated the patient. The patient would like to go home, and Dr. Baryr and I agree that this is acceptable and the patient can follow up in the clinic with her PCP tomorrow. Departure - Departure Time of Disposition: 20:28 Condition: Fair I have read and agree with the documentation that has been completed regarding this visit. By signing this record, I attest that the documentation was completed in my physical presence and is an accurate record of the encounter.
[2018-03-15 19:12] LABS: CHLORIDE,CL 106 mmol/L (101-111); SODIUM,NA 139 mmol/L (135-145)
[2018-03-15] MEDS ORDERED: Iopamidol 755 Mg/ML 100 ML Bottle IVPUSH ONE (19:39)
[2018-03-15] MEDS ORDERED: Sodium Chloride 0.9% 10 ML Syringe FLUSH PRN (19:41)
[2018-03-15] MEDS ORDERED: diphenhydrAMINE 50 MG/ML SDV IVPUSH ONE (20:15)
[2018-03-15 20:16] VITALS: BP 151/102
[2018-03-15] MEDS ORDERED: traMADol 50 MG Tab ONE (21:02)
--- NOTE | 2018-03-17 13:39 | EKG ---
03/15/2018- MIRELA FRANCISCO - FINDINGS: EKG, per my reading, shows sinus rhythm at the rate of 72. [facility] /[id number]
== END 2018-03-15 21:16 | disposition home or self-care (01) ==
LOC: DL.ED 17:44
DX: F41.9 Anxiety disorder, unspecified (principal); F32.9 Major depressive disorder, single episode, unspecified; R79.1 Abnormal coagulation profile; Z88.5 Allergy status to narcotic agent; Z88.6 Allergy status to analgesic agent; Z88.1 Allergy status to other antibiotic agents
CPT/HCPCS: 36415; 71260; 80053; 81001; 81025; 84484; 85025; 85379; 85610; 93005; 93010; 96374; 99284; A9270; J1200; Q9967; 99283

== ENCOUNTER 2018-12-10 15:16 | Emergency (ER) | payer OTHER ==
[2018-12-10 15:26] VITALS: BP 153/94
[2018-12-10] MEDS ORDERED: Cyclobenzaprine 10 MG Tab PO ONE (15:55)
--- NOTE | 2018-12-10 16:00 | EDM.PDOC ---
ED HPI GENERAL MEDICAL PROBLEM - General Chief Complaint: Neck Problem Stated Complaint: PAINS TO BACK OF HEAD AND NECK Time Seen by Provider: 12/10/18 15:55 Source of Information: Reports: Patient History Limitations: Reports: No Limitations - History of Present Illness INITIAL COMMENTS - FREE TEXT/NARRATIVE: progressive onset of pain base of skull area going down to sides of neck and even hurts to open her mouth and even her ears hurts and hurts to swallow. called her MD and got ABX but it's been 4 days now. denies injury to head or neck states it just suddenly started after she got a cold and been coughing alot. Neck Pain Score (Numeric/FACES): 3 - Related Data Allergies Allergy/AdvReac Type Severity Reaction Status Date / Time acetaminophen [From Tylenol] Allergy Cannot Verified 12/10/18 15:23 Remember codeine Allergy Hives Verified 12/10/18 15:23 morphine Allergy Rash Verified 12/10/18 15:23 ciprofloxacin [From Cipro] AdvReac Rash Verified 12/10/18 15:23 ciprofloxacin HCl AdvReac Rash Verified 12/10/18 15:23 [From Cipro] bees Allergy Swelling Uncoded 12/10/18 15:23 Home Meds: Home Meds Ibuprofen 600 mg PO ASDIRECTED PRN 08/16/16 [History] Past Medical History - Past Health History Medical/Surgical History: Denies Medical/Surgical History HEENT History: Reports: Sinusitis Other Cardiovascular History: states heart murmur is sometimes audible, sometimes not Respiratory History: Reports: Asthma, Bronchitis, Recurrent Gastrointestinal History: Reports: Diverticulosis, GERD Other Gastrointestinal History: ? 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 Musculoskeletal History: Reports: Other (See Below) Other Musculoskeletal History: muscle spasms, herniated disc Neurological History: Reports: Concussion Other Neuro History: unsure if she has had a concussion or not Psychiatric History: Reports: Anxiety, Depression, Emotional Problems, Mood Swings, PTSD Endocrine/Metabolic History: Reports: Other (See Below) Other Endocrine/Metabolic History: while , not specifically diagnosed, hypoglycemia at times Hematologic History: Reports: Anemia Immunologic History: Reports: None Oncologic (Cancer) History: Reports: None Dermatologic History: Reports: None - Infectious Disease History Infectious Disease History: Reports: Chicken Pox - Past Surgical History Head Surgeries/Procedures: Reports: None HEENT Surgical History: Reports: Eye Surgery GI Surgical History: Reports: Hernia, Abdominal Female Surgical History: Reports: Section Social & Family History - Family History Family Medical History: Noncontributory - Tobacco Use Smoking Status *Q: Never Smoker Second Hand Smoke Exposure: No - Caffeine Use Caffeine Use: Reports: None - Recreational Drug Use Recreational Drug Use: No - Sexual History Sexual History: Reports: Sexually Active - Living Situation & Occupation Living situation: Reports: with Family Occupation: Unemployed ED ROS GENERAL - Review of Systems Review Of Systems: ROS reveals no pertinent complaints other than HPI. ED EXAM, UPPER BACK/NECK PAIN - Physical Exam Exam: See Below Exam Limited By: No Limitations General Appearance: Alert, WD/WN, Anxious, Mild Distress, Other (crying) Ears Exam: Normal External Exam, Normal Canal, Hearing Grossly Normal, TM Dullness Throat/Mouth Exam: Normal Oropharynx, Normal Voice, No Airway Compromise Head Exam: Atraumatic Neck Exam: Muscle Spasm, Tender Lateral Nexus Criteria: No: Posterior, Midline Cervical Tenderness, Evidence of Intoxication, Altered Level of Consciousness, Focal Neurological Deficit, Painful Distraction Injuries Cardiovascular/Respiratory: Regular Rate, Rhythm, Normal Breath Sounds, No Respiratory Distress GI/Abdominal: Soft, Non-Tender Neurologic: No Motor/Sensory Deficits, Alert, Oriented x 3 Psychiatric: Tearful Skin Exam: Normal Color, Warm/Dry Lymphatic: No Adenopathy Course - Vital Signs Last Recorded V/S: Last Vital Signs Temp 37.7 C 12/10/18 15:23 Pulse 84 12/10/18 15:23 Resp 18 12/10/18 15:23 BP 153/94 H 12/10/18 15:23 Pulse Ox 100 12/10/18 15:23 - Orders/Labs/Meds Orders: Active Orders 24 hr Category Date Time Status Cervical Spine wo Cont [CT] Urgent Exams 12/10/18 17:04 Taken Head wo Cont [CT] Urgent Exams 12/10/18 17:04 Taken Labs: Laboratory Tests 12/10/18 12/10/18 12/10/18 Range/Units 16:00 16:00 16:00 WBC 11.2 H (5.0-10.0) 10^3/uL RBC 4.17 L (4.2-5.4) 10^6/uL Hgb 11.1 L (12.0-16.0) g/dL Hct 33.9 L (37.0-47.0) % MCV 81.3 D (80-100) fL MCH 26.6 L (27.0-34.0) pg MCHC 32.7 L (33.0-35.0) g/dL Plt Count 329 D (150-450) 10^3/uL Neut % (Auto) 84.3 H (42.2-75.2) % Lymph % (Auto) 10.3 L (20.5-50.1) % [place] % (Auto) 4.7 (2-8) % Eos % (Auto) 0.5 L (1.0-3.0) % Baso % (Auto) 0.2 (0.0-1.0) % Sodium 136 (135-145) mmol/L Potassium 3.3 L (3.6-5.0) mmol/L Chloride 107 (101-111) mmol/L Carbon Dioxide 21.0 (21.0-31.0) mmol/L Anion Gap 11.3 BUN 13 (7-18) mg/dL Creatinine 0.7 (0.6-1.3) mg/dL Est Cr Clr Drug Dosing 93.17 mL/min Estimated GFR (MDRD) > 60 BUN/Creatinine Ratio 18.57 Glucose 97 (74-105) mg/dL Calcium 8.4 (8.4-10.2) mg/dl Total Bilirubin 0.6 (0.2-1.0) mg/dL AST 16 (10-42) IU/L ALT 10 (10-60) IU/L Alkaline Phosphatase 72 (42-121) IU/L C-Reactive Protein 1.0 (0.0-1.3) mg/dL Total Protein 7.5 (6.7-8.2) g/dl Albumin 3.8 (3.2-5.5) g/dl Globulin 3.7 Albumin/Globulin Ratio 1.03 Meds: Medications Discontinued Medications Generic Name Dose Route Start Last Admin Trade Name Freq PRN Reason Stop Dose Admin Cyclobenzaprine HCl 10 mg 12/10/18 15:55 12/10/18 16:01 Flexeril PO 12/10/18 15:56 10 mg ONETIME ONE Administration - Re-Assessments/Exams Free Text/Narrative Re-Assessment/Exam: 12/10/18 17:05 re-exam; s/p flexeril = '0' 12/10/18 17:53 negative CAT results discussed with pt, soft collar placed Departure - Departure Time of Disposition: 17:53 Disposition: Home, Self-Care 01 Condition: Fair Clinical Impression: Cervical paraspinal muscle spasm - Discharge Information Instructions: Muscle Cramps and Spasms, [id number] Forms: ED Department Discharge Additional Instructions: 1) wear collar for comfort 2) continue heat or ice to sore areas 3) continue motrin as needed 4) follow up at clinic rx given; flexeril 10mg tid prn x 12 - My Orders Last 24 Hours: My Active Orders 12/10/18 17:04 Cervical Spine wo Cont [CT] Urgent Head wo Cont [CT] Urgent - Assessment/Plan Last 24 Hours: My Active Orders 12/10/18 17:04 Cervical Spine wo Cont [CT] Urgent Head wo Cont [CT] Urgent
[2018-12-10 16:24] LABS: ANION GAP 11.3; CHLORIDE,CL 107 mmol/L (101-111); SODIUM,NA 136 mmol/L (135-145)
== END 2018-12-10 18:06 | disposition home or self-care (01) ==
LOC: DL.ED 15:16
DX: M62.830 Muscle spasm of back (principal); Z88.2 Allergy status to sulfonamides; Z88.5 Allergy status to narcotic agent; Z88.1 Allergy status to other antibiotic agents; Z91.030 Bee allergy status
CPT/HCPCS: 36415; 70450; 72125; 80053; 85025; 86140; 99284; A9270

== ENCOUNTER 2019-06-29 22:29 | Emergency (ER) | payer OTHER ==
--- NOTE | 2019-06-29 23:59 | EDM.PDOC ---
ED HPI GENERAL MEDICAL PROBLEM - General Chief Complaint: Lower Extremity Injury/Pain Stated Complaint: LEFT LEG ALL SWALLON UP, PAIN Time Seen by Provider: 06/29/19 23:57 Source of Information: Reports: Patient History Limitations: Reports: No Limitations - History of Present Illness INITIAL COMMENTS - FREE TEXT/NARRATIVE: sudden onset left leg pain with swelling tonight worse now, denies trauma. occurred while lying in bed. denies CP/SOB Left Leg Pain Score (Numeric/FACES): 5 - Related Data Allergies Allergy/AdvReac Type Severity Reaction Status Date / Time acetaminophen [From Tylenol] Allergy Cannot Verified 06/29/19 22:56 Remember codeine Allergy Hives Verified 06/29/19 22:56 morphine Allergy Rash Verified 06/29/19 22:56 ciprofloxacin [From Cipro] AdvReac Rash Verified 06/29/19 22:56 ciprofloxacin HCl AdvReac Rash Verified 06/29/19 22:56 [From Cipro] bees Allergy Swelling Uncoded 06/29/19 22:56 Home Meds: Home Meds Ibuprofen 600 mg PO ASDIRECTED PRN 08/16/16 [History] Cyclobenzaprine [Flexeril] 5 mg PO TID PRN 06/29/19 [History] Past Medical History - Past Health History Medical/Surgical History: Denies Medical/Surgical History HEENT History: Reports: Sinusitis Other Cardiovascular History: states heart murmur is sometimes audible, sometimes not Respiratory History: Reports: Asthma, Bronchitis, Recurrent Gastrointestinal History: Reports: Diverticulosis, GERD Other Gastrointestinal History: ? 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 Musculoskeletal History: Reports: Other (See Below) Other Musculoskeletal History: muscle spasms, herniated disc Neurological History: Reports: Concussion, Migraines Other Neuro History: unsure if she has had a concussion or not Psychiatric History: Reports: Anxiety, Depression, Emotional Problems, Mood Swings, PTSD Endocrine/Metabolic History: Reports: Other (See Below) Other Endocrine/Metabolic History: while , not specifically diagnosed, hypoglycemia at times Hematologic History: Reports: Anemia Immunologic History: Reports: None Oncologic (Cancer) History: Reports: None Dermatologic History: Reports: None - Infectious Disease History Infectious Disease History: Reports: Chicken Pox - Past Surgical History Head Surgeries/Procedures: Reports: None HEENT Surgical History: Reports: Eye Surgery GI Surgical History: Reports: Hernia, Abdominal Female Surgical History: Reports: Section Social & Family History - Family History Family Medical History: Noncontributory - Tobacco Use Smoking Status *Q: Never Smoker - Caffeine Use Caffeine Use: Reports: Soda - Recreational Drug Use Recreational Drug Use: No - Sexual History Sexual History: Reports: Sexually Active - Living Situation & Occupation Living situation: Reports: with Family Occupation: Unemployed Review of Systems - Review of Systems Review Of Systems: ROS reveals no pertinent complaints other than HPI. ED EXAM, GENERAL - Physical Exam Exam: See Below Exam Limited By: No Limitations General Appearance: Alert, WD/WN, Mild Distress, Other (discomfort) Ears: Hearing Grossly Normal Throat/Mouth: Normal Voice, No Airway Compromise Head: Atraumatic Neck: Non-Tender, Full Range of Motion Respiratory/Chest: No Respiratory Distress Cardiovascular: Regular Rate, Rhythm GI/Abdominal: Soft, Non-Tender Extremities: Other (left leg mild swelling, tender R/P, NV wnl, gait limited to pain) Neurological: Alert, Oriented, Normal Cognition, No Motor/Sensory Deficits Psychiatric: Flat Affect Skin Exam: Warm, Dry, Normal Color Lymphatic: No Adenopathy Course - Vital Signs Last Recorded V/S: Last Vital Signs Temp 37.3 C 06/30/19 01:40 Pulse 72 06/30/19 01:40 Resp 18 06/30/19 01:40 BP 140/88 06/30/19 01:40 Pulse Ox 98 06/30/19 01:40 - Orders/Labs/Meds Orders: Active Orders 24 hr Category Date Time Status Venous Doppler Lwr Ext Lt [US] Urgent Exams 06/29/19 23:56 Ordered Labs: Laboratory Tests 06/29/19 06/29/19 06/29/19 Range/Units 00:02 00:02 00:02 WBC 7.6 (5.0-10.0) 10^3/uL RBC 4.34 (4.2-5.4) 10^6/uL Hgb 12.0 (12.0-16.0) g/dL Hct 36.2 L (37.0-47.0) % MCV 83.4 (80-100) fL MCH 27.6 (27.0-34.0) pg MCHC 33.1 (33.0-35.0) g/dL Plt Count 270 (150-450) 10^3/uL Neut % (Auto) 49.2 (42.2-75.2) % Lymph % (Auto) 35.2 (20.5-50.1) % [place] % (Auto) 12.0 H (2-8) % Eos % (Auto) 3.2 H (1.0-3.0) % Baso % (Auto) 0.4 (0.0-1.0) % PT 9.7 (9.0-12.0) SEC INR 0.9 (0.9-1.2) APTT 23.6 (22.0-34.0) SEC D-Dimer, Quantitative 720 H (0-400) ng/mL Sodium 138 (135-145) mmol/L Potassium 3.4 L (3.6-5.0) mmol/L Chloride 106 (101-111) mmol/L Carbon Dioxide 24.0 (21.0-31.0) mmol/L Anion Gap 11.4 BUN 11 (7-18) mg/dL Creatinine 0.7 (0.6-1.3) mg/dL Est Cr Clr Drug Dosing 93.17 mL/min Estimated GFR (MDRD) > 60 BUN/Creatinine Ratio 15.71 Glucose 94 (74-105) mg/dL Calcium 8.5 (8.4-10.2) mg/dl Total Bilirubin 0.5 (0.2-1.0) mg/dL AST 25 (10-42) IU/L ALT 11 (10-60) IU/L Alkaline Phosphatase 63 (42-121) IU/L Total Protein 7.4 (6.7-8.2) g/dl Albumin 3.8 (3.2-5.5) g/dl Globulin 3.6 Albumin/Globulin Ratio 1.06 HCG, Qual Negative Meds: Medications Discontinued Medications Generic Name Dose Route Start Last Admin Trade Name Freq PRN Reason Stop Dose Admin Ketorolac Tromethamine 30 mg 06/30/19 01:36 06/30/19 01:43 Toradol IM 06/30/19 01:37 30 mg ONETIME ONE Administration - Re-Assessments/Exams Free Text/Narrative Re-Assessment/Exam: 06/30/19 01:39 elevated d dimer discussed with pt who states had this in March last year with negative P.E and got hives from the dye. denies CP/SOB at present. only problem is with pain from swollen left leg and only known pain med that isn't allergic is toradol which she gets for her migraine. states leg swelling problem began with . last one her lower body was swollen from waist down. seen many times but nobody is able to determine its cause. option to go to [facility] for V/Q discussed, both pt & spouse chose to hold off presently since no Sx. 06/30/19 02:22 re-exam; s/p toradol = much better. now hungry and wants to go eat. Departure - Departure Time of Disposition: 02:35 Disposition: Home, Self-Care 01 Condition: Good Clinical Impression: Leg swelling - Discharge Information Referrals: Lizabeth Loaiza NP [Primary Care Provider] - Forms: ED Department Discharge Additional Instructions: 1) elevate leg as much as practical 2) see clinic Tuesday for VASCULAR REFERRAL 3) return if there is any change or concern - My Orders Last 24 Hours: My Active Orders 06/29/19 23:56 Venous Doppler Lwr Ext Lt [US] Urgent - Assessment/Plan Last 24 Hours: My Active Orders 06/29/19 23:56 Venous Doppler Lwr Ext Lt [US] Urgent
[2019-06-30 00:29] LABS: ANION GAP 11.4; CHLORIDE,CL 106 mmol/L (101-111); SODIUM,NA 138 mmol/L (135-145)
[2019-06-30] MEDS ORDERED: Ketorolac 30 MG/ML SDV IM ONE (01:36)
[2019-06-30 01:41] VITALS: BP 140/88; PULSE 72
== END 2019-06-30 02:36 | disposition home or self-care (01) ==
LOC: DL.ED 22:29
DX: M79.89 Other specified soft tissue disorders (principal); M79.605 Pain in left leg; Z91.030 Bee allergy status; Z88.1 Allergy status to other antibiotic agents; Z88.5 Allergy status to narcotic agent
CPT/HCPCS: 36415; 80053; 84703; 85025; 85379; 85610; 85730; 96372; 99284; J1885; 93971

== ENCOUNTER 2019-11-17 11:52 | Observation (INO) | payer OTHER ==
[2019-11-17] MEDS ORDERED: Sodium Chloride 0.9% 1,000 ML IV ONE (12:49)
[2019-11-17] MEDS ORDERED: Ondansetron 4 MG in Sodium Chloride 0.9% 50 ML IV ONE (13:02)
[2019-11-17 13:33] LABS: CHLORIDE,CL 102 mmol/L (101-111); SODIUM,NA 133 mmol/L (135-145)
[2019-11-17] MEDS ORDERED: Ondansetron 4 MG Tab.DIS PO PRN (16:33)
[2019-11-17] MEDS ORDERED: Ondansetron 4 MG/2 ML SDV IVPUSH PRN (16:44)
[2019-11-17] MEDS ORDERED: hydrOXYzine HCl 25 MG Tab PO PRN (16:44)
[2019-11-17] MEDS ORDERED: D5 1/2 NS w/ 40 mEq/L KCl 1,000 ML IV SCH (16:45)
[2019-11-17] MEDS ORDERED: Potassium Chloride 20 MEQ in Premix Bag 2 BAG IV ONE (17:25)
[2019-11-17] MEDS ORDERED: Sodium Chloride 0.9% 10 ML Syringe FLUSH PRN (17:45)
[2019-11-17] MEDS: Dextrose 5%-0.9% NaCl with KCl 1,000 ML IV SCH (17:58)
[2019-11-17] MEDS: cefTRIAXone 1 GM in Sodium Chloride 0.9% 50 ML IV SCH (18:03)
[2019-11-17] MEDS: Potassium Chloride 20 MEQ in Premix Bag 1 BAG IV SCH ×2 (18:36→21:53)
--- NOTE | 2019-11-17 18:56 | PCM.LDHP ---
<Quita Montgomery - Last Filed: 11/17/19 18:50> L&D History of Present Illness - General Date of Service: 11/17/19 Admit Problem/Dx: Patient Status Order with Admit Dx/Problem 11/17/19 14:39 Admission Diagnosis [ADT] Stat Admission Status [Patient Status] [ADT] Routine 11/17/19 16:34 Patient Status [ADT] Routine Admission Diagnosis/Problem Admission Diagnosis/Problem Nausea and vomiting during Source of Information: Patient History Limitations: Reports: No Limitations - History of Present Illness Introduction:: Suzette presented to the clinic today for sinus pressure and congestion. The clinic recommended she be evaluated at the ED. She states she has been dealing with sinus pressure, ear fullness, sinus congestion, sore throat, nasal congestion, and cough for the last week. The symptoms continue to worsen and today she developed a subjective fever. She also has been feeling chilled at times. She describes the cough as dry and irritating. She has not tried any OTC agents for the symptoms. She has been trying to stay hydrated with oral fluids but reports a decreased appetite. She also has had some nausea and vomiting but she thinks that is just from the . She denies any recent antibiotic use or hospitalizations. She did receive the flu shot this year. She reports several sick contacts at home and from her 's employment. She has not traveled anywhere other than [place] recently. She lives with all but two children and her . She states there is no exposures or irritants in the home. She denies tobacco use, illegal drug use, or tobacco use. She does have a history of seasonal allergies. She also reports asthma due to allergies and exercise induced. She states this has gone well. Of note, she has had 4 c-sections, last one being emergent due to uterine rupture. She is currently following with Dr. Whyte and maternal medicine. Family history was reviewed with the patient. She says her daughter has a thyroid condition and her son has leukemia. Her mother has a history of HTN and COPD. - Related Data Allergies/Adverse Reactions: Allergies Allergy/AdvReac Type Severity Reaction Status Date / Time acetaminophen [From Tylenol] Allergy Hives Verified 11/17/19 20:48 codeine Allergy Hives Verified 06/29/19 22:56 morphine Allergy Rash Verified 06/29/19 22:56 ciprofloxacin [From Cipro] AdvReac Rash Verified 06/29/19 22:56 ciprofloxacin HCl AdvReac Rash Verified 06/29/19 22:56 [From Cipro] bees Allergy Swelling Uncoded 06/29/19 22:56 Home Medications: Home Meds Ibuprofen 600 mg PO Q6H PRN 08/16/16 [History] Progesterone, Micronized [Progesterone] 200 mg VAG BEDTIME 11/17/19 [History] Amoxicillin/Clavulanate K [Augmentin 875-125 MG] 1 tab PO Q12HR #11 tablet 11/19 [Rx] Past Medical History - Past Health History Medical/Surgical History: Denies Medical/Surgical History HEENT History: Reports: Impaired Vision, Sinusitis Other Cardiovascular History: states heart murmur is sometimes audible, sometimes not Respiratory History: Reports: Asthma, Bronchitis, Recurrent, Sleep Apnea Gastrointestinal History: Reports: Diverticulosis, GERD Other Gastrointestinal History: ? 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 OB/BYN History: 7 pregnancies Musculoskeletal History: Reports: Other (See Below) Other Musculoskeletal History: muscle spasms, herniated disc Neurological History: Reports: Concussion, Migraines Other Neuro History: unsure if she has had a concussion or not Psychiatric History: Reports: Anxiety, Depression, Emotional Problems, Mood Swings, PTSD, Other (See Below) Other Psychiatric History: personality disorder Endocrine/Metabolic History: Reports: Other (See Below) Other Endocrine/Metabolic History: while , not specifically diagnosed, hypoglycemia at times Hematologic History: Reports: Anemia Immunologic History: Reports: None Oncologic (Cancer) History: Reports: None Dermatologic History: Reports: None - Infectious Disease History Infectious Disease History: Reports: Chicken Pox - Past Surgical History Head Surgeries/Procedures: Reports: None HEENT Surgical History: Reports: Eye Surgery Cardiovascular Surgical History: Reports: None Respiratory Surgical History: Reports: None GI Surgical History: Reports: Hernia, Abdominal Female Surgical History: Reports: Section Neurological Surgical History: Reports: None Musculoskeletal Surgical History: Reports: None Social & Family History - Family History Family Medical History: Noncontributory - Tobacco Use Smoking Status *Q: Never Smoker Second Hand Smoke Exposure: No - Caffeine Use Caffeine Use: Reports: Soda - Recreational Drug Use Recreational Drug Use: No - Sexual History Sexual History: Reports: Sexually Active - Living Situation & Occupation Living situation: Reports: with Family Occupation: Unemployed H&P Review of Systems - Review of Systems: Review Of Systems: See Below General: Reports: Fever, Chills, Weakness, Fatigue, Diaphoresis, Decreased Appetite HEENT: Reports: Rhinitis, Post Nasal Drip, Sinus Congestion, Sore Throat, Other (ear fullness) Pulmonary: Reports: Cough Cardiovascular: Reports: No Symptoms Gastrointestinal: Reports: Nausea, Vomiting Genitourinary: Reports: No Symptoms Skin: Reports: No Symptoms Neurological: Reports: No Symptoms L&D Exam - Exam Exam: See Below - Vital Signs Vital Signs: Last Vital Signs Temp 99.5 F 11/17/19 12:03 Pulse 78 11/17/19 12:03 Resp 18 11/17/19 12:03 BP 97/60 11/17/19 12:03 Pulse Ox 100 11/17/19 12:03 Weight: 63.049 kg - OB Specific Fundal Height In cm: 22 Movement: Active - Exam General: Alert, Oriented HEENT: EOMI, Mucosa Moist & [place], Nares Patent, Rhinitis, Other (pupils equal and round. She has right sided frontal and maxillary tenderness to light palpation. Nasal edema and discharge noted.) Neck: Supple, Trachea Midline Lungs: Clear to Auscultation, Normal Respiratory Effort Cardiovascular: Regular Rate, Regular Rhythm, Normal S1, Normal S2 GI/Abdominal Exam: Normal Bowel Sounds, Soft, Non-Tender, No Organomegaly, No Distention Back Exam: Normal Inspection, Full Range of Motion Extremities: Normal Inspection, Non-Tender, No Pedal Edema, Normal Capillary Refill Skin: Warm, Dry, Intact Psychiatric: Alert - Patient Data Lab Results Last 24 hrs: Laboratory Results - last 24 hr 11/17/19 11/17/19 Range/Units 12:57 12:57 WBC 8.2 (5.0-10.0) 10^3/uL RBC 3.30 L (4.2-5.4) 10^6/uL Hgb 9.7 L D (12.0-16.0) g/dL Hct 28.5 L (37.0-47.0) % MCV 86.4 D (80-100) fL MCH 29.4 (27.0-34.0) pg MCHC 34.0 (33.0-35.0) g/dL Plt Count 233 (150-450) 10^3/uL Neut % (Auto) 79.0 H (42.2-75.2) % Lymph % (Auto) 11.6 L (20.5-50.1) % [place] % (Auto) 7.9 (2-8) % Eos % (Auto) 1.3 (1.0-3.0) % Baso % (Auto) 0.2 (0.0-1.0) % Sodium 133 L (135-145) mmol/L Potassium 3.0 L (3.6-5.0) mmol/L Chloride 102 (101-111) mmol/L Carbon Dioxide 22.0 (21.0-31.0) mmol/L Anion Gap 12.0 BUN 5 L (7-18) mg/dL Creatinine 0.6 (0.6-1.3) mg/dL Est Cr Clr Drug Dosing 108.70 mL/min Estimated GFR (MDRD) > 60 BUN/Creatinine Ratio 8.33 Glucose 77 (74-105) mg/dL Calcium 8.2 L (8.4-10.2) mg/dl Total Bilirubin 0.6 (0.2-1.0) mg/dL AST 12 (10-42) IU/L ALT 8 L (10-60) IU/L Alkaline Phosphatase 72 (42-121) IU/L Total Protein 6.5 L (6.7-8.2) g/dl Albumin 2.8 L (3.2-5.5) g/dl Globulin 3.7 Albumin/Globulin Ratio 0.76 Result Diagrams: 11/17/19 12:57 11/17/19 12:57 Percy Results Last 24 hrs: Microbiology 11/17/19 12:45 Group A Streptococcus Rapid Screen - Final Throat NEGATIVE STREP A SCREEN REFERENCE RANGE: NEGATIVE 11/17/19 12:45 Influenza Type A Antigen Screen - Final Nasal, Unspecified NEGATIVE INFLUENZA A VIRUS AG REFERENCE RANGE: NEGATIVE Influenza Type B Antigen Screen - Final NEGATIVE INFLUENZA B VIRUS AG REFERENCE RANGE: NEGATIVE - Problem List (1) Sinusitis, acute SNOMED Code(s): 25518120 ICD Code: J01.90 - ACUTE SINUSITIS, UNSPECIFIED Status: Acute (2) Nausea SNOMED Code(s): 005557677 ICD Code: R11.0 - NAUSEA Status: Acute (3) SNOMED Code(s): 64190394 ICD Code: Z34.90 - ENCNTR FOR SUPRVSN OF NORMAL , UNSP, UNSP TRIMESTER Status: Acute (4) Anxiety SNOMED Code(s): 64554391 ICD Code: F41.9 - ANXIETY DISORDER, UNSPECIFIED Status: Acute Problem List Initiated/Reviewed/Updated: Yes Orders Last 24hrs: Active Orders 24 hr Category Date Time Status Admission Diagnosis [ADT] Stat ADT 11/17/19 14:39 Ordered Admission Status [Patient Status] [ADT] Routine ADT 11/17/19 14:39 Active Patient Status [ADT] Routine ADT 11/17/19 16:34 Active Antiembolic Devices [RC] , Care 11/17/19 16:38 Active Heart Rate [RC] QSHIFT Care 11/17/19 17:46 Active Oxygen Therapy [RC] PRN Care 11/17/19 16:34 Active Peripheral IV Care [RC] , Care 11/17/19 17:45 Active Up ad Zuleima [RC] ASDIRECTED Care 11/17/19 16:33 Active Vital Signs [RC] Q4H Care 11/17/19 16:34 Active Clear Liquid Diet [DIET] Diet 11/17/19 Lunch Active CULTURE STREP A CONFIRMATION [RM] Stat Lab 11/17/19 12:45 Results STREP SCRN A RAPID W CULT CONF [RM] Stat Lab 11/17/19 12:45 Results Dextrose 5%-0.9% NaCl with KCl [D5 NS with 20 mEq KCl] Med 11/17/19 16:45 Active 1,000 ml IV ASDIRECTED Ondansetron [Zofran ODT] Med 11/17/19 16:33 Active 4 mg PO Q4H PRN Ondansetron [Zofran] Med 11/17/19 16:44 Active 4 mg IVPUSH Q4H PRN Potassium Chloride [KCL 20 MEQ in Water 100 ML] 20 meq Med 11/17/19 18:30 Active Premix Bag 1 bag IV Q2H Sodium Chloride 0.9% [Saline Flush] Med 11/17/19 17:45 Active 10 ml FLUSH ASDIRECTED PRN cefTRIAXone [Rocephin] 1 gm Med 11/17/19 18:00 Active Sodium Chloride 0.9% [Normal Saline] 50 ml IV Q12H hydrOXYzine HCL [Atarax] Med 11/17/19 16:44 Active 25 mg PO Q4H PRN Antiembolic Hose [OM.PC] Per Unit Routine Oth 11/17/19 16:38 Ordered Peripheral IV Insertion Adult [OM.PC] Routine Oth 11/17/19 17:45 Ordered Resuscitation Status Routine Resus Stat 11/17/19 16:33 Ordered Medication Orders Hydroxyzine HCl (Atarax) 25 mg PO Q4H PRN PRN Reason: Nausea Potassium Chloride/Dextrose/Sod Cl (D5 Ns With 20 Meq Kcl) 1,000 mls @ 150 mls/ hr IV ASDIRECTED TRI Last Admin: 11/17/19 17:58 Dose: 150 mls/hr Ceftriaxone Sodium 1 gm/ (Sodium Chloride) 50 mls @ 100 mls/hr IV Q12H TRI Last Admin: 11/17/19 18:03 Dose: 100 mls/hr Potassium Chloride 20 meq/ (Premix) 100 mls @ 50 mls/hr IV Q2H TRI Stop: 11/17/19 22:29 Last Admin: 11/17/19 18:36 Dose: 35 mls/hr Ondansetron HCl (Zofran Odt) 4 mg PO Q4H PRN PRN Reason: nausea, able to take PO Ondansetron HCl (Zofran) 4 mg IVPUSH Q4H PRN PRN Reason: Nausea/Vomiting Sodium Chloride (Saline Flush) 10 ml FLUSH ASDIRECTED PRN PRN Reason: Keep Vein Open Assessment/Plan Comment:: Will admit to the hospital for sinusitis and clinical dehydration in . She did receive IVF bolus in ED but will continue with IVF at this time. Will also treat with rocephin X1 followed by oral augmentin starting tomorrow. She can use saline spray or washes if it helps the symptoms. Encouraged rest, hydration, and eat if she can. She also had a low potassium level so will plan to replace via IV and oral and then recheck tomorrow AM. <Olivia Brannon - Last Filed: 11/20/19 07:20> L&D History of Present Illness - General Admit Problem/Dx: Patient Status Order with Admit Dx/Problem 11/17/19 14:39 Admission Diagnosis [ADT] Stat Admission Status [Patient Status] [ADT] Routine 11/17/19 16:34 Patient Status [ADT] Routine Admission Diagnosis/Problem Admission Diagnosis/Problem Nausea and vomiting during L&D Exam - Vital Signs Vital Signs: Last Vital Signs Temp 99.5 F 11/19/19 11:26 Pulse 75 11/19/19 11:26 Resp 18 11/19/19 11:26 BP 83/48 L 11/19/19 11:26 Pulse Ox 99 11/19/19 11:26 - Patient Data Result Diagrams: 11/17/19 12:57 11/18/19 06:20 Orders Last 24hrs: Active Orders 24 hr Category Date Time Status Ready for Discharge [RC] PER UNIT ROUTINE Care 11/19/19 15:18 Active Assessment/Plan Comment:: Patient seen and examined. Agree with note written by Dr. Montgomery. Other diagnoses hypokalemia and anemia of both of which will be addressed. 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
[2019-11-17] MEDS ORDERED: cefTRIAXone 1 GM in Sodium Chloride 0.9% 50 ML IV SCH (21:00)
[2019-11-17] MEDS ORDERED: Metoclopramide 10 MG Tab PO PRN (21:11)
[2019-11-17] MEDS: diphenhydrAMINE 25 MG Tab PO PRN (21:55)
[2019-11-18] MEDS: Dextrose 5%-0.9% NaCl with KCl 1,000 ML IV SCH ×3 (01:03→16:16)
[2019-11-18] MEDS: cefTRIAXone 1 GM in Sodium Chloride 0.9% 50 ML IV SCH ×2 (06:27→17:34)
[2019-11-18 07:09] LABS: CHLORIDE,CL 111 mmol/L (101-111); SODIUM,NA 137 mmol/L (135-145)
--- NOTE | 2019-11-18 09:08 | PCM.PN ---
<Quita Montgomery - Last Filed: 11/18/19 09:02> - General Info Date of Service: 11/18/19 Admission Dx/Problem (Free Text): sinusitis, dehydration Subjective Update: Suzette states she had an ok night. She did a saline wash last night, which did help her sinus pressure but it gave her a headache. This morning, she reports improvement in the sinus pressure and congestion but is now having a dry, sore throat and her voice is hoarse. She was able to get some rest last night. She plans to try breakfast this morning. She has been urinating without difficulties. She has no other new symptoms or concerns. She is feeling baby move. - Review of Systems General: Reports: Fatigue HEENT: Reports: Headaches, Sinus Congestion, Sore Throat, Other Pulmonary: Reports: No Symptoms Cardiovascular: Reports: No Symptoms Gastrointestinal: Reports: No Symptoms Genitourinary: Reports: No Symptoms Skin: Reports: No Symptoms - Patient Data Vitals - Most Recent: Last Vital Signs Temp 98.2 F 11/18/19 08:00 Pulse 74 11/18/19 08:00 Resp 18 11/18/19 08:00 BP 99/51 L 11/18/19 08:00 Pulse Ox 96 11/18/19 08:00 Weight - Most Recent: 63.049 kg I&O - Last 24 Hours: Intake & Output 11/17/19 11/18/19 11/18/19 22:59 06:59 14:59 Intake Total 200 1700 Balance 200 1700 Lab Results Last 24 Hours: Laboratory Results - last 24 hr 11/17/19 11/17/19 11/17/19 Range/Units 12:57 12:57 22:34 WBC 8.2 (5.0-10.0) 10^3/uL RBC 3.30 L (4.2-5.4) 10^6/uL Hgb 9.7 L D (12.0-16.0) g/dL Hct 28.5 L (37.0-47.0) % MCV 86.4 D (80-100) fL MCH 29.4 (27.0-34.0) pg MCHC 34.0 (33.0-35.0) g/dL Plt Count 233 (150-450) 10^3/uL Neut % (Auto) 79.0 H (42.2-75.2) % Lymph % (Auto) 11.6 L (20.5-50.1) % [place] % (Auto) 7.9 (2-8) % Eos % (Auto) 1.3 (1.0-3.0) % Baso % (Auto) 0.2 (0.0-1.0) % Sodium 133 L (135-145) mmol/L Potassium 3.0 L (3.6-5.0) mmol/L Chloride 102 (101-111) mmol/L Carbon Dioxide 22.0 (21.0-31.0) mmol/L Anion Gap 12.0 BUN 5 L (7-18) mg/dL Creatinine 0.6 (0.6-1.3) mg/dL Est Cr Clr Drug Dosing 108.70 mL/min Estimated GFR (MDRD) > 60 BUN/Creatinine Ratio 8.33 Glucose 77 (74-105) mg/dL Calcium 8.2 L (8.4-10.2) mg/dl Magnesium 1.7 L (1.8-2.5) mg/dL Total Bilirubin 0.6 (0.2-1.0) mg/dL AST 12 (10-42) IU/L ALT 8 L (10-60) IU/L Alkaline Phosphatase 72 (42-121) IU/L Total Protein 6.5 L (6.7-8.2) g/dl Albumin 2.8 L (3.2-5.5) g/dl Globulin 3.7 Albumin/Globulin Ratio 0.76 02/16/20 Range/Units 06:20 WBC (5.0-10.0) 10^3/uL RBC (4.2-5.4) 10^6/uL Hgb (12.0-16.0) g/dL Hct (37.0-47.0) % MCV (80-100) fL MCH (27.0-34.0) pg MCHC (33.0-35.0) g/dL Plt Count (150-450) 10^3/uL Neut % (Auto) (42.2-75.2) % Lymph % (Auto) (20.5-50.1) % [place] % (Auto) (2-8) % Eos % (Auto) (1.0-3.0) % Baso % (Auto) (0.0-1.0) % Sodium 137 (135-145) mmol/L Potassium 4.0 (3.6-5.0) mmol/L Chloride 111 (101-111) mmol/L Carbon Dioxide 21.0 (21.0-31.0) mmol/L Anion Gap 9.0 BUN 2 L (7-18) mg/dL Creatinine 0.4 L (0.6-1.3) mg/dL Est Cr Clr Drug Dosing 163.05 mL/min Estimated GFR (MDRD) > 60 BUN/Creatinine Ratio Glucose 90 (74-105) mg/dL Calcium 7.6 L (8.4-10.2) mg/dl Magnesium (1.8-2.5) mg/dL Total Bilirubin (0.2-1.0) mg/dL AST (10-42) IU/L ALT (10-60) IU/L Alkaline Phosphatase (42-121) IU/L Total Protein (6.7-8.2) g/dl Albumin (3.2-5.5) g/dl Globulin Albumin/Globulin Ratio Percy Results Last 24 Hours: Microbiology 11/17/19 12:45 Quick Strep Confirmation Culture - Final Throat NO GROUP A STREP ISOLATED REFERENCE RANGE: NEGATIVE Group A Streptococcus Rapid Screen - Final NEGATIVE STREP A SCREEN REFERENCE RANGE: NEGATIVE 11/17/19 12:45 Influenza Type A Antigen Screen - Final Nasal, Unspecified NEGATIVE INFLUENZA A VIRUS AG REFERENCE RANGE: NEGATIVE Influenza Type B Antigen Screen - Final NEGATIVE INFLUENZA B VIRUS AG REFERENCE RANGE: NEGATIVE Med Orders - Current: Current Medications Benzocaine/Menthol (Cepacol Sore Throat) 1 lozenge MUCMEM TID PRN PRN Reason: Sore Throat Diphenhydramine HCl (Benadryl) 25 mg PO BEDTIME PRN PRN Reason: sleep, headache Last Admin: 11/17/19 21:55 Dose: 25 mg Hydroxyzine HCl (Atarax) 25 mg PO Q4H PRN PRN Reason: Nausea Potassium Chloride/Dextrose/Sod Cl (D5 Ns With 20 Meq Kcl) 1,000 mls @ 150 mls/ hr IV ASDIRECTED TRI Last Admin: 11/18/19 01:03 Dose: 150 mls/hr Ceftriaxone Sodium 1 gm/ (Sodium Chloride) 50 mls @ 100 mls/hr IV Q12H TRI Last Admin: 11/18/19 06:27 Dose: 50 mls/hr Metoclopramide HCl (Reglan) 10 mg PO ONETIME PRN PRN Reason: Other Last Admin: 11/17/19 21:55 Dose: 10 mg Ondansetron HCl (Zofran Odt) 4 mg PO Q4H PRN PRN Reason: nausea, able to take PO Ondansetron HCl (Zofran) 4 mg IVPUSH Q4H PRN PRN Reason: Nausea/Vomiting Sodium Chloride (Saline Flush) 10 ml FLUSH ASDIRECTED PRN PRN Reason: Keep Vein Open Discontinued Medications Sodium Chloride (Normal Saline) 1,000 mls @ 1,000 mls/hr IV .BOLUS ONE Stop: 11/17/19 13:48 Last Admin: 11/17/19 13:00 Dose: 1,000 mls/hr Ondansetron HCl 4 mg/ Sodium (Chloride) 52 mls @ 200 mls/hr IV ONETIME ONE Stop: 11/17/19 13:18 Last Admin: 11/17/19 14:13 Dose: 200 mls/hr Ceftriaxone Sodium 1 gm/ (Sodium Chloride) 50 mls @ 100 mls/hr IV Q12HR [facility] Potassium Chloride/Dextrose/Sod Cl (D5 1/2 Ns W/ 40 Meq/L Kcl) 1,000 mls @ 100 mls/hr IV ASDIRECTED [facility] Potassium Chloride 20 meq/ (Premix) 0 mls @ 50 mls/hr IV ONETIME ONE Stop: 11/17/19 17:26 Last Admin: 11/18/19 07:33 Dose: Not Given Potassium Chloride 20 meq/ (Premix) 100 mls @ 50 mls/hr IV Q2H [facility] Stop: 11/17/19 22:29 Last Admin: 11/17/19 21:53 Dose: 35 mls/hr - Exam General: Alert, Oriented, Cooperative HEENT: Pupils Equal, Mucous Membr. Moist/[place], Other (hoarse voice) Neck: Supple, No Thyromegaly Lungs: Clear to Auscultation, Normal Respiratory Effort Cardiovascular: Regular Rate, Regular Rhythm, No Murmurs GI/Abdominal Exam: Normal Bowel Sounds, Soft, Non-Tender Extremities: Non-Tender, No Pedal Edema Skin: Warm, Dry, Intact Sepsis Event Note - Evaluation Sepsis Screening Result: No Definite Risk - Focused Exam Vital Signs: Vital Signs Temp Pulse Resp BP BP Pulse Ox 11/18/19 08:00 98.2 F 74 18 99/51 L 96 11/18/19 04:00 98.6 F 66 20 81/50 L 100 Date Exam was Performed: 11/18/19 Time Exam was Performed: 09:03 - Problem List & Annotations (1) Sinusitis, acute SNOMED Code(s): 93775856 Code(s): J01.90 - ACUTE SINUSITIS, UNSPECIFIED Status: Acute (2) Nausea SNOMED Code(s): 707240100 Code(s): R11.0 - NAUSEA Status: Acute (3) SNOMED Code(s): 33462311 Code(s): Z34.90 - ENCNTR FOR SUPRVSN OF NORMAL , UNSP, UNSP TRIMESTER Status: Acute (4) Anxiety SNOMED Code(s): 00380905 Code(s): F41.9 - ANXIETY DISORDER, UNSPECIFIED Status: Acute - Problem List Review Problem List Initiated/Reviewed/Updated: Yes - My Orders Last 24 Hours: My Active Orders 11/17/19 19:18 Heart Tones [RC] 09,21 11/17/19 21:09 diphenhydrAMINE [Benadryl] 25 mg PO BEDTIME PRN 11/17/19 21:11 Metoclopramide [Reglan] 10 mg PO ONETIME PRN 11/18/19 09:01 Benzocaine/Cetylpyrd/Menthol [Cepacol Sore Throat] 1 lozenge MUCMEM TID PRN - Plan Plan:: Suzette's sinusitis symptoms have improved from admission. We can transition to oral amoxicillin today after she receives one more IV rocephin dose. She can use nasal saline spray instead of washes, if she prefers. Will use throat lozenges for sore throat. Encouraged her to drink plenty of fluids. Potassium has improved since being replaced via IV, will not continue with any other IV replacement. Magnesium check last night, only mildly decreased at 1.7. Continue to monitor FHT once a shift while she is hospitalized. <Olivia Brannon - Last Filed: 11/20/19 07:23> - Patient Data Vitals - Most Recent: Last Vital Signs Temp 99.5 F 02/17/20 11:26 Pulse 75 11/19/19 11:26 Resp 18 11/19/19 11:26 BP 83/48 L 11/19/19 11:26 Pulse Ox 99 11/19/19 11:26 Med Orders - Current: Current Medications Discontinued Medications Amoxicillin/Clavulanate Potassium (Augmentin 875 Mg/125 Mg) 1 tab PO Q12HR TRI Benzocaine/Menthol (Cepacol Sore Throat) 1 lozenge MUCMEM TID PRN PRN Reason: Sore Throat Last Admin: 11/18/19 14:08 Dose: 1 lozenge Diphenhydramine HCl (Benadryl) 25 mg PO BEDTIME PRN PRN Reason: sleep, headache Last Admin: 11/18/19 20:41 Dose: 25 mg Hydroxyzine HCl (Atarax) 25 mg PO Q4H PRN PRN Reason: Nausea Sodium Chloride (Normal Saline) 1,000 mls @ 1,000 mls/hr IV .BOLUS ONE Stop: 11/17/19 13:48 Last Admin: 11/17/19 13:00 Dose: 1,000 mls/hr Ondansetron HCl 4 mg/ Sodium (Chloride) 52 mls @ 200 mls/hr IV ONETIME ONE Stop: 11/17/19 13:18 Last Admin: 11/17/19 14:13 Dose: 200 mls/hr Ceftriaxone Sodium 1 gm/ (Sodium Chloride) 50 mls @ 100 mls/hr IV Q12HR TRI Potassium Chloride/Dextrose/Sod Cl (D5 1/2 Ns W/ 40 Meq/L Kcl) 1,000 mls @ 100 mls/hr IV ASDIRECTED TRI Potassium Chloride/Dextrose/Sod Cl (D5 Ns With 20 Meq Kcl) 1,000 mls @ 150 mls/ hr IV ASDIRECTED TRI Last Admin: 11/18/19 16:16 Dose: 150 mls/hr Potassium Chloride 20 meq/ (Premix) 0 mls @ 50 mls/hr IV ONETIME ONE Stop: 11/17/19 17:26 Last Admin: 11/18/19 07:33 Dose: Not Given Ceftriaxone Sodium 1 gm/ (Sodium Chloride) 50 mls @ 100 mls/hr IV Q12H TRI Last Admin: 11/19/19 06:15 Dose: 50 mls/hr Potassium Chloride 20 meq/ (Premix) 100 mls @ 50 mls/hr IV Q2H TRI Stop: 11/17/19 22:29 Last Admin: 11/17/19 21:53 Dose: 35 mls/hr Sodium Chloride (Normal Saline) 1,000 mls @ 150 mls/hr IV ASDIRECTED TRI Last Admin: 11/19/19 10:49 Dose: 150 mls/hr Metoclopramide HCl (Reglan) 10 mg PO ONETIME PRN PRN Reason: Other Last Admin: 11/17/19 21:55 Dose: 10 mg Metoclopramide HCl (Reglan) 10 mg PO Q6H PRN PRN Reason: Headache Last Admin: 11/18/19 20:42 Dose: 10 mg Ondansetron HCl (Zofran Odt) 4 mg PO Q4H PRN PRN Reason: nausea, able to take PO Ondansetron HCl (Zofran) 4 mg IVPUSH Q4H PRN PRN Reason: Nausea/Vomiting Sodium Chloride (Saline Flush) 10 ml FLUSH ASDIRECTED PRN PRN Reason: Keep Vein Open - Plan Plan:: Patient seen and examined. Agree with note written by Dr. Montgomery. Will use Augmentin rather than amoxicillin for her sinus infection. 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
[2019-11-18] MEDS: Benzocaine/Cetylpyridinium/Menthol Lozenge MUCMEM PRN ×2 (09:44→14:08)
[2019-11-18] MEDS ORDERED: Metoclopramide 10 MG Tab PO PRN (20:21)
[2019-11-18] MEDS: Sodium Chloride 0.9% 1,000 ML IV SCH (20:23)
[2019-11-18] MEDS: diphenhydrAMINE 25 MG Tab PO PRN (20:41)
[2019-11-19] MEDS: Sodium Chloride 0.9% 1,000 ML IV SCH ×2 (03:05→10:49)
[2019-11-19] MEDS: cefTRIAXone 1 GM in Sodium Chloride 0.9% 50 ML IV SCH (06:15)
--- NOTE | 2019-11-19 08:02 | PCM.PN ---
<Quita Montgomery - Last Filed: 11/19/19 08:24> - General Info Date of Service: 11/19/19 Admission Dx/Problem (Free Text): sinusitis, dehydration Subjective Update: Suzette states she is feeling better this morning. She was able to eat a full meal last night and that helped her symptoms. She remained on IVF overnight and tolerated it well. She states her nasal congestion and sinus pressure has improved. Her voice is still hoarse but that also has improved. She rested well. She would like to eat breakfast this morning and feels ready to discharge home. She denies any fever, chills, rhinorrhea, coughing, vomiting, urinary symptoms. She is feeling baby move. - Review of Systems General: Reports: Fatigue HEENT: Reports: Sinus Congestion, Other (hoarse voice) Pulmonary: Reports: No Symptoms Cardiovascular: Reports: No Symptoms Gastrointestinal: Reports: Nausea Genitourinary: Reports: No Symptoms Skin: Reports: No Symptoms - Patient Data Vitals - Most Recent: Last Vital Signs Temp 99.4 F 11/18/19 20:00 Pulse 85 11/18/19 20:00 Resp 20 11/18/19 20:00 BP 81/46 L 11/18/19 20:00 Pulse Ox 100 11/18/19 20:00 Weight - Most Recent: 63.049 kg Percy Results Last 24 Hours: Microbiology 11/17/19 12:45 Quick Strep Confirmation Culture - Final Throat NO GROUP A STREP ISOLATED REFERENCE RANGE: NEGATIVE Group A Streptococcus Rapid Screen - Final NEGATIVE STREP A SCREEN REFERENCE RANGE: NEGATIVE Med Orders - Current: Current Medications Benzocaine/Menthol (Cepacol Sore Throat) 1 lozenge MUCMEM TID PRN PRN Reason: Sore Throat Last Admin: 11/18/19 14:08 Dose: 1 lozenge Diphenhydramine HCl (Benadryl) 25 mg PO BEDTIME PRN PRN Reason: sleep, headache Last Admin: 11/18/19 20:41 Dose: 25 mg Hydroxyzine HCl (Atarax) 25 mg PO Q4H PRN PRN Reason: Nausea Ceftriaxone Sodium 1 gm/ (Sodium Chloride) 50 mls @ 100 mls/hr IV Q12H TRI Last Admin: 11/19/19 06:15 Dose: 50 mls/hr Sodium Chloride (Normal Saline) 1,000 mls @ 150 mls/hr IV ASDIRECTED [facility] Last Admin: 11/19/19 03:05 Dose: 150 mls/hr Metoclopramide HCl (Reglan) 10 mg PO Q6H PRN PRN Reason: Headache Last Admin: 11/18/19 20:42 Dose: 10 mg Ondansetron HCl (Zofran Odt) 4 mg PO Q4H PRN PRN Reason: nausea, able to take PO Ondansetron HCl (Zofran) 4 mg IVPUSH Q4H PRN PRN Reason: Nausea/Vomiting Sodium Chloride (Saline Flush) 10 ml FLUSH ASDIRECTED PRN PRN Reason: Keep Vein Open Discontinued Medications Sodium Chloride (Normal Saline) 1,000 mls @ 1,000 mls/hr IV .BOLUS ONE Stop: 11/17/19 13:48 Last Admin: 11/17/19 13:00 Dose: 1,000 mls/hr Ondansetron HCl 4 mg/ Sodium (Chloride) 52 mls @ 200 mls/hr IV ONETIME ONE Stop: 11/17/19 13:18 Last Admin: 11/17/19 14:13 Dose: 200 mls/hr Ceftriaxone Sodium 1 gm/ (Sodium Chloride) 50 mls @ 100 mls/hr IV Q12HR [facility] Potassium Chloride/Dextrose/Sod Cl (D5 1/2 Ns W/ 40 Meq/L Kcl) 1,000 mls @ 100 mls/hr IV ASDIRECTED [facility] Potassium Chloride/Dextrose/Sod Cl (D5 Ns With 20 Meq Kcl) 1,000 mls @ 150 mls/ hr IV ASDIRECTED [facility] Last Admin: 11/18/19 16:16 Dose: 150 mls/hr Potassium Chloride 20 meq/ (Premix) 0 mls @ 50 mls/hr IV ONETIME ONE Stop: 11/17/19 17:26 Last Admin: 11/18/19 07:33 Dose: Not Given Potassium Chloride 20 meq/ (Premix) 100 mls @ 50 mls/hr IV Q2H [facility] Stop: 11/17/19 22:29 Last Admin: 11/17/19 21:53 Dose: 35 mls/hr Metoclopramide HCl (Reglan) 10 mg PO ONETIME PRN PRN Reason: Other Last Admin: 11/17/19 21:55 Dose: 10 mg - Exam General: Alert, Oriented, Cooperative HEENT: Pupils Equal, Mucous Membr. Moist/[place], Other (no sinus tenderness on palpation) Neck: Supple Lungs: Clear to Auscultation, Normal Respiratory Effort Cardiovascular: Regular Rate, Regular Rhythm, No Murmurs GI/Abdominal Exam: Normal Bowel Sounds, Soft, Non-Tender Back Exam: Normal Inspection Extremities: Normal Inspection, Non-Tender, No Pedal Edema Skin: Warm, Dry, Intact Sepsis Event Note - Evaluation Sepsis Screening Result: No Definite Risk - Problem List & Annotations (1) Sinusitis, acute SNOMED Code(s): 33269095 Code(s): J01.90 - ACUTE SINUSITIS, UNSPECIFIED Status: Acute (2) Nausea SNOMED Code(s): 268392891 Code(s): R11.0 - NAUSEA Status: Acute (3) SNOMED Code(s): 95908513 Code(s): Z34.90 - ENCNTR FOR SUPRVSN OF NORMAL , UNSP, UNSP TRIMESTER Status: Acute (4) Anxiety SNOMED Code(s): 36257818 Code(s): F41.9 - ANXIETY DISORDER, UNSPECIFIED Status: Acute - Problem List Review Problem List Initiated/Reviewed/Updated: Yes - My Orders Last 24 Hours: My Active Orders 11/18/19 09:01 Benzocaine/Cetylpyrd/Menthol [Cepacol Sore Throat] 1 lozenge MUCMEM TID PRN 11/18/19 20:00 Sodium Chloride 0.9% [Normal Saline] 1,000 ml IV ASDIRECTED 11/18/19 20:21 Metoclopramide [Reglan] 10 mg PO Q6H PRN 11/18/19 20:48 Communication Order [RC] ROUTINE - Plan Plan:: Suzette's sinusitis symptoms continue to improve. Her BP has also improved with the IVF and general diet. We will keep IVF running this morning while she eats her breakfast. Will transition to oral augmentin for sinusitis and stop rocephin. Plan to discharge later today. <Norma Lopes - Last Filed: 11/21/19 10:15> - Patient Data Vitals - Most Recent: Last Vital Signs Temp 37.5 C 11/19/19 11:26 Pulse 75 02/17/20 11:26 Resp 18 11/19/19 11:26 BP 83/48 L 11/19/19 11:26 Pulse Ox 99 11/19/19 11:26 Med Orders - Current: Current Medications Discontinued Medications Amoxicillin/Clavulanate Potassium (Augmentin 875 Mg/125 Mg) 1 tab PO Q12HR [facility] Benzocaine/Menthol (Cepacol Sore Throat) 1 lozenge MUCMEM TID PRN PRN Reason: Sore Throat Last Admin: 11/18/19 14:08 Dose: 1 lozenge Diphenhydramine HCl (Benadryl) 25 mg PO BEDTIME PRN PRN Reason: sleep, headache Last Admin: 11/18/19 20:41 Dose: 25 mg Hydroxyzine HCl (Atarax) 25 mg PO Q4H PRN PRN Reason: Nausea Sodium Chloride (Normal Saline) 1,000 mls @ 1,000 mls/hr IV .BOLUS ONE Stop: 11/17/19 13:48 Last Admin: 11/17/19 13:00 Dose: 1,000 mls/hr Ondansetron HCl 4 mg/ Sodium (Chloride) 52 mls @ 200 mls/hr IV ONETIME ONE Stop: 11/17/19 13:18 Last Admin: 11/17/19 14:13 Dose: 200 mls/hr Ceftriaxone Sodium 1 gm/ (Sodium Chloride) 50 mls @ 100 mls/hr IV Q12HR [facility] Potassium Chloride/Dextrose/Sod Cl (D5 1/2 Ns W/ 40 Meq/L Kcl) 1,000 mls @ 100 mls/hr IV ASDIRECTED [facility] Potassium Chloride/Dextrose/Sod Cl (D5 Ns With 20 Meq Kcl) 1,000 mls @ 150 mls/ hr IV ASDIRECTED [facility] Last Admin: 11/18/19 16:16 Dose: 150 mls/hr Potassium Chloride 20 meq/ (Premix) 0 mls @ 50 mls/hr IV ONETIME ONE Stop: 11/17/19 17:26 Last Admin: 11/18/19 07:33 Dose: Not Given Ceftriaxone Sodium 1 gm/ (Sodium Chloride) 50 mls @ 100 mls/hr IV Q12H [facility] Last Admin: 11/19/19 06:15 Dose: 50 mls/hr Potassium Chloride 20 meq/ (Premix) 100 mls @ 50 mls/hr IV Q2H [facility] Stop: 11/17/19 22:29 Last Admin: 11/17/19 21:53 Dose: 35 mls/hr Sodium Chloride (Normal Saline) 1,000 mls @ 150 mls/hr IV ASDIRECTED TRI Last Admin: 11/19/19 10:49 Dose: 150 mls/hr Metoclopramide HCl (Reglan) 10 mg PO ONETIME PRN PRN Reason: Other Last Admin: 11/17/19 21:55 Dose: 10 mg Metoclopramide HCl (Reglan) 10 mg PO Q6H PRN PRN Reason: Headache Last Admin: 11/18/19 20:42 Dose: 10 mg Ondansetron HCl (Zofran Odt) 4 mg PO Q4H PRN PRN Reason: nausea, able to take PO Ondansetron HCl (Zofran) 4 mg IVPUSH Q4H PRN PRN Reason: Nausea/Vomiting Sodium Chloride (Saline Flush) 10 ml FLUSH ASDIRECTED PRN PRN Reason: Keep Vein Open - Plan Plan:: Agree with resident assessment and plan. Patient was examined by me. Dr. Norma Lopes MD
--- NOTE | 2019-11-19 08:54 | PCM.DCSUM1 ---
<Quita Montgomery - Last Filed: 11/19/19 08:51> Discharge Summary - Hospital Course Free Text/Narrative:: Suzette was admitted to the hospital for sinusitis, dehydration during . She was given IVF and IV antibiotics. Her symptoms improved and she transitioned to oral antibiotics. She did not have an elevated WBC or fever. She is now tolerating a general diet well. She continues to feel baby move. Diagnosis: Stroke: No - Discharge Data Discharge Date: 11/19/19 Discharge Disposition: Home, Self-Care 01 Condition: Stable - Referral to Home Health Primary Care Physician: PCP Unobtainable - Discharge Diagnosis/Problem(s) (1) Sinusitis, acute SNOMED Code(s): 96286333 ICD Code: J01.90 - ACUTE SINUSITIS, UNSPECIFIED Status: Acute (2) Nausea SNOMED Code(s): 526937515 ICD Code: R11.0 - NAUSEA Status: Acute (3) SNOMED Code(s): 68919680 ICD Code: Z34.90 - ENCNTR FOR SUPRVSN OF NORMAL , UNSP, UNSP TRIMESTER Status: Acute (4) Anxiety SNOMED Code(s): 60301887 ICD Code: F41.9 - ANXIETY DISORDER, UNSPECIFIED Status: Acute - Patient Instructions Activity: As Tolerated - Discharge Plan *PRESCRIPTION DRUG MONITORING PROGRAM REVIEWED*: Not Applicable *COPY OF PRESCRIPTION DRUG MONITORING REPORT IN PATIENT ROGELIO: Not Applicable Prescriptions/Med Rec: Amoxicillin/Clavulanate K [Augmentin 875-125 MG] 1 tab PO Q12HR #11 tablet Home Medications: Home Meds Ibuprofen 600 mg PO Q6H PRN 08/16/16 [History] Progesterone, Micronized [Progesterone] 200 mg VAG BEDTIME 11/17/19 [History] Amoxicillin/Clavulanate K [Augmentin 875-125 MG] 1 tab PO Q12HR #11 tablet 11/19 [Rx] Oxygen Therapy Mode: Room Air Patient Handouts: Amoxicillin; Clavulanic Acid tablets, Nausea and Vomiting, Adult Referrals: Lizabeth Loaiza NP [Ordering Only Provider] - Hammad Whyte MD [Physician] - - Discharge Summary/Plan Comment DC Time >30 min.: No Discharge Summary/Plan Comment: Will treat sinusitis with Augmentin for 6 more days. She can use OTC agents as needed. - General Info Date of Service: 11/19/19 - Review of Systems General: Reports: Fatigue HEENT: Reports: Sinus Congestion Pulmonary: Reports: Other (occasional cough) Cardiovascular: Reports: No Symptoms Gastrointestinal: Reports: Nausea Genitourinary: Reports: No Symptoms Skin: Reports: No Symptoms - Patient Data Vitals - Most Recent: Last Vital Signs Temp 98.8 F 11/19/19 08:00 Pulse 71 11/19/19 08:00 Resp 16 11/19/19 08:00 BP 87/50 L 11/19/19 08:00 Pulse Ox 100 11/19/19 08:00 Weight - Most Recent: 63.049 kg I&O - Last 24 hours: Intake & Output 11/18/19 11/19/19 11/19/19 22:59 06:59 14:59 Intake Total 1375 Balance 1375 VIDAL Results - Last 24 hrs: Microbiology 11/17/19 12:45 Quick Strep Confirmation Culture - Final Throat NO GROUP A STREP ISOLATED REFERENCE RANGE: NEGATIVE Group A Streptococcus Rapid Screen - Final NEGATIVE STREP A SCREEN REFERENCE RANGE: NEGATIVE Med Orders - Current: Current Medications Amoxicillin/Clavulanate Potassium (Augmentin 875 Mg/125 Mg) 1 tab PO Q12HR TRI Benzocaine/Menthol (Cepacol Sore Throat) 1 lozenge MUCMEM TID PRN PRN Reason: Sore Throat Last Admin: 11/18/19 14:08 Dose: 1 lozenge Diphenhydramine HCl (Benadryl) 25 mg PO BEDTIME PRN PRN Reason: sleep, headache Last Admin: 11/18/19 20:41 Dose: 25 mg Hydroxyzine HCl (Atarax) 25 mg PO Q4H PRN PRN Reason: Nausea Sodium Chloride (Normal Saline) 1,000 mls @ 150 mls/hr IV ASDIRECTED TRI Last Admin: 11/19/19 03:05 Dose: 150 mls/hr Metoclopramide HCl (Reglan) 10 mg PO Q6H PRN PRN Reason: Headache Last Admin: 11/18/19 20:42 Dose: 10 mg Ondansetron HCl (Zofran Odt) 4 mg PO Q4H PRN PRN Reason: nausea, able to take PO Ondansetron HCl (Zofran) 4 mg IVPUSH Q4H PRN PRN Reason: Nausea/Vomiting Sodium Chloride (Saline Flush) 10 ml FLUSH ASDIRECTED PRN PRN Reason: Keep Vein Open Discontinued Medications Sodium Chloride (Normal Saline) 1,000 mls @ 1,000 mls/hr IV .BOLUS ONE Stop: 11/17/19 13:48 Last Admin: 11/17/19 13:00 Dose: 1,000 mls/hr Ondansetron HCl 4 mg/ Sodium (Chloride) 52 mls @ 200 mls/hr IV ONETIME ONE Stop: 11/17/19 13:18 Last Admin: 11/17/19 14:13 Dose: 200 mls/hr Ceftriaxone Sodium 1 gm/ (Sodium Chloride) 50 mls @ 100 mls/hr IV Q12HR TRI Potassium Chloride/Dextrose/Sod Cl (D5 1/2 Ns W/ 40 Meq/L Kcl) 1,000 mls @ 100 mls/hr IV ASDIRECTED TRI Potassium Chloride/Dextrose/Sod Cl (D5 Ns With 20 Meq Kcl) 1,000 mls @ 150 mls/ hr IV ASDIRECTED TRI Last Admin: 11/18/19 16:16 Dose: 150 mls/hr Potassium Chloride 20 meq/ (Premix) 0 mls @ 50 mls/hr IV ONETIME ONE Stop: 11/17/19 17:26 Last Admin: 11/18/19 07:33 Dose: Not Given Ceftriaxone Sodium 1 gm/ (Sodium Chloride) 50 mls @ 100 mls/hr IV Q12H [facility] Last Admin: 11/19/19 06:15 Dose: 50 mls/hr Potassium Chloride 20 meq/ (Premix) 100 mls @ 50 mls/hr IV Q2H [facility] Stop: 11/17/19 22:29 Last Admin: 11/17/19 21:53 Dose: 35 mls/hr Metoclopramide HCl (Reglan) 10 mg PO ONETIME PRN PRN Reason: Other Last Admin: 11/17/19 21:55 Dose: 10 mg <Norma Lopes - Last Filed: 11/23/19 00:25> Discharge Summary - Referral to Home Health Primary Care Physician: PCP Unobtainable - Discharge Summary/Plan Comment Discharge Summary/Plan Comment: Agree with resident assessment and plan. Patient comfortable with discharge. Examination performed by me. Norma Lopes MD - Patient Data Vitals - Most Recent: Last Vital Signs Temp 37.5 C 11/19/19 11:26 Pulse 75 11/19/19 11:26 Resp 18 11/19/19 11:26 BP 83/48 L 11/19/19 11:26 Pulse Ox 99 11/19/19 11:26 Med Orders - Current: Current Medications Discontinued Medications Amoxicillin/Clavulanate Potassium (Augmentin 875 Mg/125 Mg) 1 tab PO Q12HR TRI Benzocaine/Menthol (Cepacol Sore Throat) 1 lozenge MUCMEM TID PRN PRN Reason: Sore Throat Last Admin: 11/18/19 14:08 Dose: 1 lozenge Diphenhydramine HCl (Benadryl) 25 mg PO BEDTIME PRN PRN Reason: sleep, headache Last Admin: 11/18/19 20:41 Dose: 25 mg Hydroxyzine HCl (Atarax) 25 mg PO Q4H PRN PRN Reason: Nausea Sodium Chloride (Normal Saline) 1,000 mls @ 1,000 mls/hr IV .BOLUS ONE Stop: 11/17/19 13:48 Last Admin: 11/17/19 13:00 Dose: 1,000 mls/hr Ondansetron HCl 4 mg/ Sodium (Chloride) 52 mls @ 200 mls/hr IV ONETIME ONE Stop: 11/17/19 13:18 Last Admin: 11/17/19 14:13 Dose: 200 mls/hr Ceftriaxone Sodium 1 gm/ (Sodium Chloride) 50 mls @ 100 mls/hr IV Q12HR TRI Potassium Chloride/Dextrose/Sod Cl (D5 1/2 Ns W/ 40 Meq/L Kcl) 1,000 mls @ 100 mls/hr IV ASDIRECTED [facility] Potassium Chloride/Dextrose/Sod Cl (D5 Ns With 20 Meq Kcl) 1,000 mls @ 150 mls/ hr IV ASDIRECTED TRI Last Admin: 11/18/19 16:16 Dose: 150 mls/hr Potassium Chloride 20 meq/ (Premix) 0 mls @ 50 mls/hr IV ONETIME ONE Stop: 11/17/19 17:26 Last Admin: 11/18/19 07:33 Dose: Not Given Ceftriaxone Sodium 1 gm/ (Sodium Chloride) 50 mls @ 100 mls/hr IV Q12H TRI Last Admin: 11/19/19 06:15 Dose: 50 mls/hr Potassium Chloride 20 meq/ (Premix) 100 mls @ 50 mls/hr IV Q2H [facility] Stop: 11/17/19 22:29 Last Admin: 11/17/19 21:53 Dose: 35 mls/hr Sodium Chloride (Normal Saline) 1,000 mls @ 150 mls/hr IV ASDIRECTED [facility] Last Admin: 11/19/19 10:49 Dose: 150 mls/hr Metoclopramide HCl (Reglan) 10 mg PO ONETIME PRN PRN Reason: Other Last Admin: 11/17/19 21:55 Dose: 10 mg Metoclopramide HCl (Reglan) 10 mg PO Q6H PRN PRN Reason: Headache Last Admin: 11/18/19 20:42 Dose: 10 mg Ondansetron HCl (Zofran Odt) 4 mg PO Q4H PRN PRN Reason: nausea, able to take PO Ondansetron HCl (Zofran) 4 mg IVPUSH Q4H PRN PRN Reason: Nausea/Vomiting Sodium Chloride (Saline Flush) 10 ml FLUSH ASDIRECTED PRN PRN Reason: Keep Vein Open
[2019-11-19 11:28] VITALS: BP 83/48; PULSE 75
--- NOTE | 2019-11-19 17:52 | EDM.PDOC ---
Scribed by Misti Smith 11/19/19 [id number] for Em Randhawa NP ED HPI GENERAL MEDICAL PROBLEM - General Chief Complaint: Gastrointestinal Problem Stated Complaint: SEVERE VOMITING/23 WEEKS Time Seen by Provider: 11/17/19 12:35 Source of Information: Reports: Patient, RN, RN Notes Reviewed History Limitations: Reports: No Limitations - History of Present Illness INITIAL COMMENTS - FREE TEXT/NARRATIVE: A 38-year-old female with a 23 week show presents to the ER with complaints of sore throat, sinus congestion and popping in the ears with the right worse than left. Patient reports sinus pressure that has been present for a couple of days. The popping sound in her ears one day ago. She reports nausea and dizziness but no fevers, chills, diarrhea, constipation, or bloody bowel movements. Patient states that she has not been able to keep down any food for 3 days. She has not tried any over the counter medications, as she does not know what to take. She denies any vaginal bleeding. No shortness of breath or chest pain. Onset: Gradual Duration: Getting Worse Location: Reports: Generalized Severity: Moderate Improves with: Reports: None Worsens with: Reports: None Associated Symptoms: Reports: No Other Symptoms Right Ear Pain Score (Numeric/FACES): 8 Frontal Headache Pain Score (Numeric/FACES): 4 - Related Data Allergies Allergy/AdvReac Type Severity Reaction Status Date / Time acetaminophen [From Tylenol] Allergy Hives Verified 11/17/19 20:48 codeine Allergy Hives Verified 06/29/19 22:56 morphine Allergy Rash Verified 06/29/19 22:56 ciprofloxacin [From Cipro] AdvReac Rash Verified 06/29/19 22:56 ciprofloxacin HCl AdvReac Rash Verified 06/29/19 22:56 [From Cipro] bees Allergy Swelling Uncoded 06/29/19 22:56 Home Meds: Home Meds Ibuprofen 600 mg PO Q6H PRN 08/16/16 [History] Progesterone, Micronized [Progesterone] 200 mg VAG BEDTIME 11/17/19 [History] Amoxicillin/Clavulanate K [Augmentin 875-125 MG] 1 tab PO Q12HR #11 tablet 11/19 [Rx] Past Medical History - Past Health History Medical/Surgical History: Denies Medical/Surgical History HEENT History: Reports: Sinusitis Other Cardiovascular History: states heart murmur is sometimes audible, sometimes not Respiratory History: Reports: Asthma, Bronchitis, Recurrent Gastrointestinal History: Reports: Diverticulosis, GERD Other Gastrointestinal History: ? history of diverticulitis Genitourinary History: Reports: None BRANCH LEAD History: Reports: Other BRANCH LEAD History: 7 pregnancies Musculoskeletal History: Reports: Other (See Below) Other Musculoskeletal History: muscle spasms, herniated disc Neurological History: Reports: Concussion, Migraines Other Neuro History: unsure if she has had a concussion or not Psychiatric History: Reports: Anxiety, Depression, Emotional Problems, Mood Swings, PTSD Endocrine/Metabolic History: Reports: Other (See Below) Other Endocrine/Metabolic History: while , not specifically diagnosed, hypoglycemia at times Hematologic History: Reports: Anemia Immunologic History: Reports: None Oncologic (Cancer) History: Reports: None Dermatologic History: Reports: None - Infectious Disease History Infectious Disease History: Reports: Chicken Pox - Past Surgical History Head Surgeries/Procedures: Reports: None HEENT Surgical History: Reports: Eye Surgery GI Surgical History: Reports: Hernia, Abdominal Female Surgical History: Reports: Section Social & Family History - Family History Family Medical History: Noncontributory - Tobacco Use Smoking Status *Q: Never Smoker - Caffeine Use Caffeine Use: Reports: None - Recreational Drug Use Recreational Drug Use: No - Sexual History Sexual History: Reports: Sexually Active - Living Situation & Occupation Living situation: Reports: with Family Occupation: Unemployed ED ROS GENERAL - Review of Systems Review Of Systems: Comprehensive ROS is negative, except as noted in HPI. ED EXAM, GENERAL - Physical Exam Exam: See Below Exam Limited By: No Limitations General Appearance: Alert, WD/WN, Mild Distress Eye Exam: Bilateral Eye: EOMI, Normal Inspection, PERRL Ears: Normal External Exam, Normal Canal, Hearing Grossly Normal, Normal TMs Nose: Normal Inspection, Normal Mucosa, No Blood Throat/Mouth: Normal Oropharynx (moderate erythema. ) Head: Atraumatic, Normocephalic Neck: Lymphadenopathy (L) (moderate) Respiratory/Chest: No Respiratory Distress, Lungs Clear, Normal Breath Sounds, No Accessory Muscle Use, Chest Non-Tender Cardiovascular: Normal Peripheral Pulses, Regular Rate, Rhythm, No Edema, No Gallop, No JVD, No Murmur, No Rub (Female) Exam: Deferred Rectal (Female) Exam: Deferred Skin Exam: Warm, Dry, Intact, Normal Color, No Rash Lymphatic: No Adenopathy Course - Vital Signs Last Recorded V/S: Last Vital Signs Temp 99.5 F 11/19/19 11:26 Pulse 75 11/19/19 11:26 Resp 18 11/19/19 11:26 BP 83/48 L 11/19/19 11:26 Pulse Ox 99 11/19/19 11:26 - Orders/Labs/Meds Labs: Laboratory Tests 11/17/19 11/17/19 Range/Units 12:57 12:57 WBC 8.2 (5.0-10.0) 10^3/uL RBC 3.30 L (4.2-5.4) 10^6/uL Hgb 9.7 L D (12.0-16.0) g/dL Hct 28.5 L (37.0-47.0) % MCV 86.4 D (80-100) fL MCH 29.4 (27.0-34.0) pg MCHC 34.0 (33.0-35.0) g/dL Plt Count 233 (150-450) 10^3/uL Neut % (Auto) 79.0 H (42.2-75.2) % Lymph % (Auto) 11.6 L (20.5-50.1) % [place] % (Auto) 7.9 (2-8) % Eos % (Auto) 1.3 (1.0-3.0) % Baso % (Auto) 0.2 (0.0-1.0) % Sodium 133 L (135-145) mmol/L Potassium 3.0 L (3.6-5.0) mmol/L Chloride 102 (101-111) mmol/L Carbon Dioxide 22.0 (21.0-31.0) mmol/L Anion Gap 12.0 BUN 5 L (7-18) mg/dL Creatinine 0.6 (0.6-1.3) mg/dL Est Cr Clr Drug Dosing 108.70 mL/min Estimated GFR (MDRD) > 60 BUN/Creatinine Ratio 8.33 Glucose 77 (74-105) mg/dL Calcium 8.2 L (8.4-10.2) mg/dl Total Bilirubin 0.6 (0.2-1.0) mg/dL AST 12 (10-42) IU/L ALT 8 L (10-60) IU/L Alkaline Phosphatase 72 (42-121) IU/L Total Protein 6.5 L (6.7-8.2) g/dl Albumin 2.8 L (3.2-5.5) g/dl Globulin 3.7 Albumin/Globulin Ratio 0.76 Rapid strep: Negative. Influenza A and B: Negative. Meds: Medications Discontinued Medications Generic Name Dose Route Start Last Admin Trade Name Freq PRN Reason Stop Dose Admin Amoxicillin/Clavulanate Potassium 1 tab 11/19/19 21:00 Augmentin 875 Mg/125 Mg PO Q12HR TRI Benzocaine/Menthol 1 lozenge 11/18/19 09:01 11/18/19 14:08 Cepacol Sore Throat MUCMEM 1 lozenge TID PRN Administration Sore Throat Diphenhydramine HCl 25 mg 11/17/19 21:09 11/18/19 20:41 Benadryl PO 25 mg BEDTIME PRN Administration sleep, headache Hydroxyzine HCl 25 mg 11/17/19 16:44 Atarax PO Q4H PRN Nausea Sodium Chloride 1,000 mls @ 1,000 mls/hr 11/17/19 12:49 11/17/19 13:00 Normal Saline IV 11/17/19 13:48 1,000 mls/hr .BOLUS ONE Administration Ondansetron HCl 4 mg/ Sodium 52 mls @ 200 mls/hr 11/17/19 13:02 11/17/19 14: 13 Chloride IV 11/17/19 13:18 200 mls/hr ONETIME ONE Administration Ceftriaxone Sodium 1 gm/ 50 mls @ 100 mls/hr 11/17/19 21:00 Sodium Chloride IV Q12HR TRI Potassium Chloride/Dextrose/Sod Cl 1,000 mls @ 100 mls/hr 11/17/19 16:45 D5 1/2 Ns W/ 40 Meq/L Kcl IV ASDIRECTED TRI Potassium Chloride/Dextrose/Sod Cl 1,000 mls @ 150 mls/hr 11/17/19 16:45 16:16 D5 Ns With 20 Meq Kcl IV 150 mls/hr ASDIRECTED TRI Administration Potassium Chloride 20 meq/ 0 mls @ 50 mls/hr 11/17/19 17:25 11/18/19 07:33 Premix IV 11/17/19 17:26 Not Given ONETIME ONE Ceftriaxone Sodium 1 gm/ 50 mls @ 100 mls/hr 11/17/19 18:00 11/19/19 06:15 Sodium Chloride IV 50 mls/hr Q12H TRI Administration Potassium Chloride 20 meq/ 100 mls @ 50 mls/hr 11/17/19 18:30 11/17/19 21:53 Premix IV 11/17/19 22:29 35 mls/hr Q2H TRI Administration Sodium Chloride 1,000 mls @ 150 mls/hr 11/18/19 20:00 11/19/19 10:49 Normal Saline IV 150 mls/hr ASDIRECTED TRI Administration Metoclopramide HCl 10 mg 11/17/19 21:11 11/17/19 21:55 Reglan PO 10 mg ONETIME PRN Administration Other Metoclopramide HCl 10 mg 11/18/19 20:21 11/18/19 20:42 Reglan PO 10 mg Q6H PRN Administration Headache Ondansetron HCl 4 mg 11/17/19 16:33 Zofran Odt PO Q4H PRN nausea, able to take PO Ondansetron HCl 4 mg 11/17/19 16:44 Zofran IVPUSH Q4H PRN Nausea/Vomiting Sodium Chloride 10 ml 11/17/19 17:45 Saline Flush FLUSH ASDIRECTED PRN Keep Vein Open Departure - Departure Time of Disposition: 14:39 Disposition: Refer to Observation Condition: Fair Clinical Impression: Nausea, - Discharge Information Sepsis Event Note - Evaluation Sepsis Screening Result: No Definite Risk - Focused Exam Date Exam was Performed: 11/19/19 Time Exam was Performed: 17:51 I have read and agree with the documentation that has been completed regarding this visit. By signing this record, I attest that the documentation was completed in my physical presence and is an accurate record of the encounter.
[2019-11-19] MEDS ORDERED: Amoxicillin/Clavulanate K 875-125 MG Tab PO SCH (21:00)
== END 2019-11-19 13:15 | disposition home or self-care (01) ==
LOC: DL.ED 11:52 → DL.MS 14:39
PROVIDERS: ADMIT Family Medicine; ATTEND Family Medicine
DX: O99.512 Diseases of the respiratory system complicating pregnancy, second trimester (principal); J01.90 Acute sinusitis, unspecified; O99.282 Endocrine, nutritional and metabolic diseases complicating pregnancy, second trimester; E86.0 Dehydration; O99.342 Other mental disorders complicating pregnancy, second trimester; F41.9 Anxiety disorder, unspecified; J45.909 Unspecified asthma, uncomplicated; O99.612 Diseases of the digestive system complicating pregnancy, second trimester; O99.012 Anemia complicating pregnancy, second trimester; K21.9 Gastro-esophageal reflux disease without esophagitis; E87.6 Hypokalemia; Z3A.23 23 weeks gestation of pregnancy; Z88.6 Allergy status to analgesic agent; Z88.5 Allergy status to narcotic agent; Z88.1 Allergy status to other antibiotic agents; Z91.030 Bee allergy status
CPT/HCPCS: 36415; 71045; 80048; 80053; 83735; 85025; 87081; 87430; 87804; 96361; 96365; 96366; 96367; 96368; 99284; A9270; G0378; J0696; J2405; J3480; J7030; J7050

== ENCOUNTER 2020-12-25 04:39 | Emergency (ER) | payer BC ==
[2020-12-25] MEDS ORDERED: Silver Sulfadiazine 1% Crm 50 GM Tube TOP ONE (04:45)
--- NOTE | 2020-12-25 04:57 | EDM.PDOC ---
ED HPI GENERAL MEDICAL PROBLEM - General Chief Complaint: Upper Extremity Injury/Pain Stated Complaint: MIGHT HAVE BROKEN FINGERS Time Seen by Provider: 12/25/20 04:56 Source of Information: Reports: Patient History Limitations: Reports: No Limitations - History of Present Illness INITIAL COMMENTS - FREE TEXT/NARRATIVE: ED with c/o severe pain to back of right hand from splash burn while cooking chicken in grease approximately 45 minutes prior. Has tried ice, burn cream, lidocaine and area still painful. Right Hand Pain Score (Numeric/FACES): 8 - Related Data Allergies Allergy/AdvReac Type Severity Reaction Status Date / Time acetaminophen [From Tylenol] Allergy Hives Verified 12/21/19 19:30 codeine Allergy Hives Verified 12/21/19 19:30 morphine Allergy Rash Verified 12/21/19 19:30 ciprofloxacin [From Cipro] AdvReac Rash Verified 12/21/19 19:30 ciprofloxacin HCl AdvReac Rash Verified 12/21/19 19:30 [From Cipro] bees Allergy Swelling Uncoded 06/29/19 22:56 Home Meds: Home Meds Progesterone, Micronized [Progesterone] 200 mg VAG BEDTIME 11/17/19 [History] Amitriptyline [Elavil] 10 mg PO DAILY 12/03/19 [History] EPINEPHrine [Epinephrine] 0.3 mg IM ONETIME PRN 12/03/19 [History] Metoclopramide HCl 10 mg PO Q8H PRN 12/03/19 [History] Non-Formulary Medication [NF Drug] 108 mcg INH Q4H PRN 12/03/19 [History] Ibuprofen 600 mg PO Q6H 12/21/19 [History] Past Medical History - Past Health History Medical/Surgical History: Denies Medical/Surgical History HEENT History: Reports: Sinusitis Other Cardiovascular History: states heart murmur is sometimes audible, sometimes not Respiratory History: Reports: Asthma, Bronchitis, Recurrent Gastrointestinal History: Reports: Diverticulosis, GERD Other Gastrointestinal History: ? 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 Musculoskeletal History: Reports: Other (See Below) Other Musculoskeletal History: muscle spasms, herniated disc Neurological History: Reports: Concussion, Migraines Other Neuro History: unsure if she has had a concussion or not Psychiatric History: Reports: Anxiety, Depression, Emotional Problems, Mood Swings, PTSD Other Psychiatric History: personality disorder Endocrine/Metabolic History: Reports: Other (See Below) Other Endocrine/Metabolic History: while , not specifically diagnosed, hypoglycemia at times Hematologic History: Reports: Anemia Immunologic History: Reports: None Oncologic (Cancer) History: Reports: None Dermatologic History: Reports: None - Infectious Disease History Infectious Disease History: Reports: Chicken Pox - Past Surgical History Head Surgeries/Procedures: Reports: None HEENT Surgical History: Reports: Eye Surgery GI Surgical History: Reports: Hernia, Abdominal Female Surgical History: Reports: Section Social & Family History - Family History Family Medical History: No Pertinent Family History - Caffeine Use Caffeine Use: Reports: None - Sexual History Sexual History: Reports: Sexually Active - Living Situation & Occupation Living situation: Reports: with Family Occupation: Unemployed Review of Systems - Review of Systems Review Of Systems: Comprehensive ROS is negative, except as noted in HPI. ED EXAM, GENERAL - Physical Exam Exam: See Below Exam Limited By: No Limitations General Appearance: Alert, Anxious, Moderate Distress Ears: Hearing Grossly Normal Nose: Normal Inspection Head: Atraumatic, Normocephalic Respiratory/Chest: No Respiratory Distress, Normal Breath Sounds Cardiovascular: Normal Peripheral Pulses Neurological: Alert, Oriented Psychiatric: Anxious Skin Exam: Dry, Intact, Other (superficial blister lateral 5th finger mid, 1st degree 4th, 3rd small superficial blister over DIP mild redness miP area back of hand right) Course - Vital Signs Last Recorded V/S: Last Vital Signs Temp 97.9 F 12/25/20 04:52 Pulse 89 12/25/20 04:52 Resp 18 12/25/20 04:52 BP 160/102 H 12/25/20 04:52 Pulse Ox 100 12/25/20 04:52 - Orders/Labs/Meds Orders: Active Orders 24 hr Category Date Time Status traMADol [Ultram] Med 12/25/20 05:09 Once 50 mg PO ONETIME ONE Medication Orders Tramadol HCl (Tramadol 50 Mg Tab) 50 mg PO ONETIME ONE Stop: 12/25/20 05:10 Meds: Medications Generic Name Dose Route Start Last Admin Trade Name Freq PRN Reason Stop Dose Admin Tramadol HCl 50 mg 12/25/20 05:09 Tramadol 50 Mg Tab PO 12/25/20 05:10 ONETIME ONE Discontinued Medications Generic Name Dose Route Start Last Admin Trade Name Freq PRN Reason Stop Dose Admin Silver Sulfadiazine 50 gm 12/25/20 04:45 12/25/20 05:04 Silver Sulfadiazine 1% Crm 50 Gm Tube TOP 12/25/20 04:46 1 applic ONETIME ONE Administration Departure - Departure Time of Disposition: 05:09 Disposition: Home, Self-Care 01 Condition: Good Clinical Impression: Burn - Discharge Information *PRESCRIPTION DRUG MONITORING PROGRAM REVIEWED*: No *COPY OF PRESCRIPTION DRUG MONITORING REPORT IN PATIENT ROGELIO: No Instructions: Burn Care, Adult, [id number] Forms: ED Department Discharge Additional Instructions: Silvadene creme to burn area with dressing change twice daily elevate Ibuprofen 600mg every 6 hours with food elevate extremity clinic recheck Tuesday Let blisters break on their own Sepsis Event Note (ED) - Focused Exam Vital Signs: Vital Signs Temp Pulse Resp BP Pulse Ox 12/25/20 04:52 97.9 F 89 18 160/102 H 100 - My Orders Last 24 Hours: My Active Orders 12/25/20 05:09 traMADol [Ultram] 50 mg PO ONETIME ONE - Assessment/Plan Last 24 Hours: My Active Orders 12/25/20 05:09 traMADol [Ultram] 50 mg PO ONETIME ONE
[2020-12-25 05:01] VITALS: BP 160/102; PULSE 89
[2020-12-25] MEDS ORDERED: traMADol 50 MG Tab PO ONE (05:09)
== END 2020-12-25 05:20 | disposition home or self-care (01) ==
LOC: DL.ED 04:39
DX: T23.231A Burn of second degree of multiple right fingers (nail), not including thumb, initial encounter (principal); T23.121A Burn of first degree of single right finger (nail) except thumb, initial encounter; J45.909 Unspecified asthma, uncomplicated; Z88.6 Allergy status to analgesic agent; Z88.5 Allergy status to narcotic agent; Z88.1 Allergy status to other antibiotic agents; Z91.030 Bee allergy status; Z79.899 Other long term (current) drug therapy; X08.8XXA Exposure to other specified smoke, fire and flames, initial encounter; Y93.G3 Activity, cooking and baking
CPT/HCPCS: 99283; A9270

== ENCOUNTER 2021-10-05 11:49 | Emergency (ER) | payer BC ==
[2021-10-05 12:31] VITALS: BP 150/97
[2021-10-05 13:04] LABS: CORONAVIRUS COVID-19 NAA NEGATIVE (NEGATIVE); RESPIRATORY SYNCYTIAL VIR NAA NEGATIVE (NEGATIVE)
[2021-10-05] MEDS ORDERED: Benzonatate 100 MG Cap PO ONE (13:46)
[2021-10-05] MEDS ORDERED: Albuterol/Ipratropium 3.0-0.5 MG/3 ML Neb Soln NEB ONE (13:46)
[2021-10-05] MEDS ORDERED: methylPREDNISolone Sodium Succinate 125 MG/2 ML SDV IM ONE (13:47)
[2021-10-05 14:07] VITALS: PULSE 74
[2021-10-05] MEDS ORDERED: LORazepam 1 MG Tab PO ONE (14:17)
--- NOTE | 2021-10-05 14:49 | EDM.PDOC ---
ED HPI GENERAL MEDICAL PROBLEM - General Chief Complaint: Respiratory Problem Stated Complaint: ALOT OF TROUBLE BREATHING / COUGHING / VOMITING Time Seen by Provider: 10/05/21 12:40 Source of Information: Reports: Patient, Old Records, RN, RN Notes Reviewed History Limitations: Reports: No Limitations - History of Present Illness INITIAL COMMENTS - FREE TEXT/NARRATIVE: Pt states that she has been sick since Tuesday. Pt was feeling better yesterday therefore she didn't come in. Today pt states that she has congestion, cough, pt coughed so hard she vomited, pt complains of chest congestion. Pt has not been flu or covid vaccinated. Pt denies temperatures. Onset: Gradual Duration: Day(s): (2), Getting Worse Location: Reports: Chest, Generalized Quality: Reports: Ache Severity: Severe Improves with: Reports: None Worsens with: Reports: None Associated Symptoms: Reports: No Other Symptoms Treatments MERCHANDISE COMPLAINT ADJUSTER: Reports: Other (see below) Other Treatments MERCHANDISE COMPLAINT ADJUSTER: covid/flu swab - Related Data Allergies Allergy/AdvReac Type Severity Reaction Status Date / Time acetaminophen [From Tylenol] Allergy Hives Verified 10/05/21 12:34 codeine Allergy Hives Verified 10/05/21 12:34 morphine Allergy Rash Verified 10/05/21 12:34 ciprofloxacin [From Cipro] AdvReac Rash Verified 10/05/21 12:34 ciprofloxacin HCl AdvReac Rash Verified 10/05/21 12:34 [From Cipro] bees Allergy Swelling Uncoded 10/05/21 12:34 Home Meds: Home Meds Progesterone, Micronized [Progesterone] 200 mg VAG BEDTIME 11/17/19 [History] Amitriptyline [Elavil] 10 mg PO DAILY 12/03/19 [History] EPINEPHrine [Epinephrine] 0.3 mg IM ONETIME PRN 12/03/19 [History] Metoclopramide HCl 10 mg PO Q8H PRN 12/03/19 [History] Non-Formulary Medication [NF Drug] 108 mcg INH Q4H PRN 12/03/19 [History] Ibuprofen 600 mg PO Q6H 12/21/19 [History] Past Medical History - Past Health History Medical/Surgical History: Denies Medical/Surgical History HEENT History: Reports: Sinusitis Cardiovascular History: Reports: Heart Murmur Other Cardiovascular History: states heart murmur is sometimes audible, sometimes not Respiratory History: Reports: Asthma, Bronchitis, Recurrent Gastrointestinal History: Reports: Diverticulosis, GERD Other Gastrointestinal History: ? 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 Musculoskeletal History: Reports: Other (See Below) Other Musculoskeletal History: muscle spasms, herniated disc Neurological History: Reports: Migraines Other Neuro History: unsure if she has had a concussion or not Psychiatric History: Reports: Antisocial Behaviors, Anxiety, Depression, Emotional Problems, Mood Swings, PTSD Other Psychiatric History: personality disorder Endocrine/Metabolic History: Reports: Other (See Below) Other Endocrine/Metabolic History: while , not specifically diagnosed, hypoglycemia at times Hematologic History: Reports: Anemia Immunologic History: Reports: None Oncologic (Cancer) History: Reports: None Dermatologic History: Reports: None - Infectious Disease History Infectious Disease History: Reports: Chicken Pox - Past Surgical History Head Surgeries/Procedures: Reports: None HEENT Surgical History: Reports: Eye Surgery Other HEENT Surgeries/Procedures: two eye surgeries as a child Cardiovascular Surgical History: Reports: None Respiratory Surgical History: Reports: None GI Surgical History: Reports: Hernia, Abdominal Female Surgical History: Reports: Section Other Female Surgeries/Procedures: x3 Neurological Surgical History: Reports: None Musculoskeletal Surgical History: Reports: None Social & Family History - Family History Family Medical History: No Pertinent Family History - Tobacco Use Tobacco Use Status *Q: Unknown Ever Used Tobacco - Caffeine Use Caffeine Use: Reports: Coffee - Living Situation & Occupation Living situation: Reports: with Family Occupation: Unemployed ED ROS GENERAL - Review of Systems Review Of Systems: Comprehensive ROS is negative, except as noted in HPI. ED EXAM, GENERAL - Physical Exam Exam: See Below Exam Limited By: No Limitations General Appearance: Alert, No Apparent Distress, Anxious Eye Exam: Bilateral Eye: Normal Inspection Ears: Normal External Exam, Normal Canal, Hearing Grossly Normal, Normal TMs Nose: No Blood, Clear Rhinorrhea Throat/Mouth: Normal Inspection, Normal Lips, Normal Teeth, Normal Gums, Normal Oropharynx, Normal Voice, No Airway Compromise Head: Atraumatic, Normocephalic Neck: Normal Inspection, Supple, Non-Tender, Full Range of Motion. No: Lymphadenopathy (L), Lymphadenopathy (R) Respiratory/Chest: Decreased Breath Sounds, Wheezing. No: Crackles, Rales, Rhonchi Cardiovascular: Regular Rate, Rhythm, Tachycardia GI/Abdominal: Normal Bowel Sounds, Soft, Non-Tender, No Organomegaly, No Distention, No Abnormal Bruit, No Mass Back Exam: Normal Inspection Extremities: Normal Inspection, Normal Range of Motion, Non-Tender, Normal Capillary Refill, No Pedal Edema Neurological: Alert, Oriented, No Motor/Sensory Deficits Psychiatric: Anxious, Tearful Skin Exam: Warm, Dry, Intact, Normal Color, No Rash Course - Vital Signs Last Recorded V/S: Last Vital Signs Temp 98.3 F 10/05/21 12:31 Pulse 74 10/05/21 14:05 Resp 18 10/05/21 12:31 BP 150/97 H 10/05/21 12:31 Pulse Ox 99 10/05/21 12:31 - Orders/Labs/Meds Orders: Active Orders 24 hr Category Date Time Status RT Aerosol Therapy [RC] ASDIRECTED Care 10/05/21 13:46 Active Labs: Laboratory Tests 10/05/21 Range/Units 12:16 Influenza Type A RNA Positive H (NEGATIVE) RSV RNA (INAAT) Negative (NEGATIVE) Influenza Type B RNA Negative (NEGATIVE) SARS-CoV-2 RNA (FELICIA) Negative (NEGATIVE) Meds: Medications Discontinued Medications Generic Name Dose Route Start Last Admin Trade Name Freq PRN Reason Stop Dose Admin Albuterol/Ipratropium 3 ml 10/05/21 13:46 10/05/21 13:57 Albuterol/Ipratropium 3.0-0.5 Mg/3 Ml Neb Soln NEB 10/05/21 13:47 3 ml ONETIME ONE Administration Benzonatate 200 mg 10/05/21 13:46 10/05/21 13:58 Benzonatate 100 Mg Cap PO 10/05/21 13:47 200 mg ONETIME ONE Administration Lorazepam 1 mg 10/05/21 14:17 10/05/21 14:22 Lorazepam 1 Mg Tab PO 10/05/21 14:18 1 mg ONETIME ONE Administration Methylprednisolone Sodium Succinate 125 mg 10/05/21 13:47 10/05/21 13:58 Methylprednisolone Sodium Succinate 125 Mg/2 Ml Sdv IM 10/05/21 13:48 125 mg ONETIME ONE Administration - Radiology Interpretation Free Text/Narrative:: [facility] Final Radiology Report Call: [phone] assistance Online chat: [email or web address] Name: MIRELA FRANCISCO Age: 40Years F Date: 10/05/2021 SSN: -- : [id number] Study: CR CHEST 1V FRONTAL Requesting Physician: ELIZABETH RUEDA Images: 1 Addl Studies: Provided Clinical History: chest pain, cough, influenza Contrast: Contrast Medium: Contrast Amount: Contrast Method: CONFIDENTIALITY STATEMENT This report is intended only for use by the referring physician, and only in accordance with law. If you received this in error, call [phone]. Page 1 of 1 PROCEDURE INFORMATION: Exam: XR Chest Exam date and time: 10/05/2021 2:01 PM Age: 40 years old Clinical indication: Cough; Additional info: Chest pain, cough, influenza TECHNIQUE: Imaging protocol: XR of the chest. Views: 1 view. COMPARISON: CR Chest 1V Frontal 11/17/2019 3:49 PM FINDINGS: Lungs: Atelectatic changes noted within both lung bases. Pleural spaces: Unremarkable. No pleural effusion. No pneumothorax. Heart/Mediastinum: Unremarkable. No cardiomegaly. Bones/joints: Unremarkable. IMPRESSION: Atelectatic changes noted within both lung bases. Thank you for allowing us to participate in the care of your patient. Dictated and Authenticated by: Casey Paiz DO 10/05/2021 2:59 PM Central Time ([place] & [place]) Departure - Departure Time of Disposition: 15:12 Disposition: Home, Self-Care 01 Condition: Fair Clinical Impression: Influenza A - Discharge Information *PRESCRIPTION DRUG MONITORING PROGRAM REVIEWED*: Not Applicable *COPY OF PRESCRIPTION DRUG MONITORING REPORT IN PATIENT ROGELIO: Not Applicable Instructions: Bronchospasm, Adult, Influenza, Adult Forms: ED Department Discharge Additional Instructions: Rx: Tamiflu 75mg Rx: Tessalon Perles 200mg Rx: Decadron (Dexamethasone) 4mg Rx: Lorazepam 1mg Use Tylenol (Acetaminophen) and/or Ibuprofen (Motrin/Advil) as needed for fevers or body aches. Follow directions on label for dosing and precautions. Drink plenty of water, Pedialyte, or Gatorade. Follow up in clinic or return to ER if you develop any difficulty breathing. Sepsis Event Note (ED) - Evaluation Sepsis Screening Result: No Definite Risk - Focused Exam Vital Signs: Vital Signs Temp Pulse Pulse Resp BP Pulse Ox 10/05/21 14:05 74 10/05/21 12:31 98.3 F 111 H 18 150/97 H 99 - My Orders Last 24 Hours: My Active Orders 10/05/21 13:46 RT Aerosol Therapy [RC] ASDIRECTED - Assessment/Plan Last 24 Hours: My Active Orders 10/05/21 13:46 RT Aerosol Therapy [RC] ASDIRECTED
--- NOTE | 2021-10-05 14:59 | CR ---
PROCEDURE INFORMATION: Exam: XR Chest Exam date and time: 10/05/2021 2:01 PM Age: 40 years old Clinical indication: Cough; Additional info: Chest pain, cough, influenza TECHNIQUE: Imaging protocol: XR of the chest. Views: 1 view. COMPARISON: CR Chest 1V Frontal 11/17/2019 3:49 PM FINDINGS: Lungs: Atelectatic changes noted within both lung bases. Pleural spaces: Unremarkable. No pleural effusion. No pneumothorax. Heart/Mediastinum: Unremarkable. No cardiomegaly. Bones/joints: Unremarkable. IMPRESSION: Atelectatic changes noted within both lung bases.
== END 2021-10-05 15:20 | disposition home or self-care (01) ==
LOC: DL.ED 11:49
DX: J10.1 Influenza due to other identified influenza virus with other respiratory manifestations (principal); J45.909 Unspecified asthma, uncomplicated; Z88.6 Allergy status to analgesic agent; Z88.5 Allergy status to narcotic agent; Z88.1 Allergy status to other antibiotic agents; Z91.030 Bee allergy status; Z79.899 Other long term (current) drug therapy; Z20.822 Contact with and (suspected) exposure to COVID-19
CPT/HCPCS: 0241U; 71045; 94640; 96372; 99284; A9270; J2930; J7620-GY

== ENCOUNTER 2022-01-06 19:41 | Emergency (ER) | payer SELFPAY ==
[2022-01-06] MEDS ORDERED: Sodium Chloride 0.9% 10 ML Syringe FLUSH PRN (20:05)
[2022-01-06] MEDS ORDERED: fentaNYL 100 MCG/2 ML SDV IVPUSH ONE ×2 (20:08→22:34)
[2022-01-06 20:09] VITALS: BP 175/117; PULSE 78
[2022-01-06 20:53] LABS: ANION GAP 16.6 mEq/L (7-13); CHLORIDE,CL 104 mmol/L (98-107); SODIUM,NA 140 mmol/L (136-145)
[2022-01-06] MEDS ORDERED: Iopamidol 755 Mg/ML 100 ML Bottle IVPUSH ONE (21:10)
[2022-01-06] MEDS ORDERED: methylPREDNISolone Sodium Succinate 125 MG/2 ML SDV IVPUSH ONE (22:34)
[2022-01-06] MEDS ORDERED: diphenhydrAMINE 50 MG/ML SDV IVPUSH ONE (22:53)
[2022-01-06] MEDS ORDERED: Ondansetron 4 MG/2 ML SDV IVPUSH ONE (22:54)
== END 2022-01-06 23:35 | disposition home or self-care (01) ==
LOC: DL.ED 19:41
DX: M54.2 Cervicalgia (principal); K21.9 Gastro-esophageal reflux disease without esophagitis; Z88.5 Allergy status to narcotic agent; Z88.1 Allergy status to other antibiotic agents; Z91.030 Bee allergy status; Z88.8 Allergy status to other drugs, medicaments and biological substances
CPT/HCPCS: 36415; 71260; 72125; 72128; 80053; 82550; 83605; 83690; 83735; 84100; 84484; 84703; 85025; 85379; 85651; 86140; 93005; 93010; 96374; 96375; 96376; 99284; J1200; J2405; J2930; J3010; Q9967

== ENCOUNTER 2025-02-19 08:42 | Emergency (ER) | payer BC, OTHER ==
[2025-02-19] MEDS ORDERED: Sodium Chloride 0.9% 10 ML Syringe FLUSH PRN (08:55)
[2025-02-19 09:09] LABS: BASOPHILS PERCENT AUTO 0.7 % (0.0-1.0); EOSINOPHILS PERCENT AUTO 4.8 % (1.0-3.0); HEMATOCRIT 36.2 % (37.0-47.0); LYMPHOCYTES PERCENT AUTO 32.3 % (20.5-50.1); MEAN CORPUSCULAR HEMOGLOBIN 27.8 pg (27.0-34.0); MEAN CORPUSCULAR HGB CONC 33.1 g/dL (33.0-35.0); MONOCYTES PERCENT AUTO 12.7 % (2-8); NEUTROPHILS PERCENT AUTO 49.5 % (42.2-75.2); PLATELET COUNT,PLT 353 10^3/uL (150-450); RED BLOOD CELL COUNT 4.31 10^6/uL (4.2-5.4)
[2025-02-19] MEDS: HYDROmorphone 0.5 MG/0.5 ML Syringe IVPUSH ONE (09:11)
[2025-02-19 09:32] LABS: A/G RATIO 0.8; ALANINE AMINOTRANSFERASE,ALT 13 U/L (14-59); ALBUMIN 3.4 g/dL (3.4-5.0); ALKALINE PHOSPHATASE 92 U/L (46-116); ANION GAP 11.7 mEq/L (7-13); ASPARTATE AMNIOTRANSFERASE,AST 10 U/L (15-37); BILIRUBIN TOTAL 0.4 mg/dL (0.2-1.0); BLOOD UREA NITROGEN,BUN 10 mg/dL (7-18); BUN/CREATININE RATIO 11.9 (No establ ref range); CALCIUM 8.5 mg/dL (8.5-10.1); CARBON DIOXIDE,CO2 27 mmol/L (21-32); CHLORIDE,CL 105 mmol/L (98-107); CREATININE 0.84 mg/dL (0.55-1.02); EST CRCL DRUG DOSING (CG) 73.03 mL/min; ESTIMATED GFR 87 mL/min (>=60); GLUCOSE RANDOM 92 mg/dL (70-99); LIPASE 21 U/L (16-77); MAGNESIUM 1.9 mg/dL (1.8-2.4); POTASSIUM,K 3.7 mmol/L (3.5-5.1); PROTEIN TOTAL,TP 7.5 g/dL (6.4-8.2); SODIUM,NA 140 mmol/L (136-145)
[2025-02-19 09:36] LABS: PROTHROMBIN TIME 10.3 SEC (9.0-12.0)
[2025-02-19 09:39] LABS: HCG QUALITATIVE,SERUM NEGATIVE (NEGATIVE)
[2025-02-19] MEDS: Iopamidol 612 MG/ML 100 ML Bottle IVPUSH ONE (09:39)
[2025-02-19 09:55] LABS: APPEARANCE,URINE CLEAR (CLEAR); BILIRUBIN,URINE NEGATIVE (NEGATIVE); COLOR,URINE YELLOW (YELLOW); GLUCOSE,URINE NEGATIVE (NEGATIVE); KETONES,URINE NEGATIVE (NEGATIVE); LEUKOCYTE ESTERASE,URINE NEGATIVE (NEGATIVE); NITRITE,URINE NEGATIVE (NEGATIVE); OCCULT BLOOD,URINE SMALL (NEGATIVE); PH,URINE 6.5 (5.0-9.0); PROTEIN,URINE NEGATIVE (NEGATIVE); UROBILINOGEN,URINE 0.2 mg/dL (0.2-1.0)
[2025-02-19 10:12] LABS: AMORPHOUS SEDIMENT,URINE FEW /HPF (NOT SEEN); BACTERIA,URINE FEW /HPF (0-FEW/HPF); EPITHELIAL CELLS,URINE MODERATE /HPF (NOT SEEN); MUCUS,URINE MANY /LPF (NOT SEEN); WBC,URINE 0-5 /HPF (0-5/HPF)
[2025-02-19] MEDS: Ketorolac 30 MG/ML SDV IVPUSH ONE (10:34)
[2025-02-19] MEDS: diphenhydrAMINE 50 MG/ML SDV IVPUSH ONE (10:35)
[2025-02-19] MEDS: Metoclopramide 10 MG/2 ML SDV IVPUSH ONE (10:35)
[2025-02-19] MEDS: Dexamethasone 4 MG/ML SDV IVPUSH ONE (11:16)
[2025-02-19] MEDS: SUMAtriptan 6 MG/0.5 ML SDV SUBCUT ONE (11:16)
[2025-02-19 11:23] VITALS: BP 145/97; PULSE 62
== END 2025-02-19 12:00 | disposition home or self-care (01) ==
LOC: DL.ED 08:42
DX: G43.901 Migraine, unspecified, not intractable, with status migrainosus (principal); R10.32 Left lower quadrant pain; J45.909 Unspecified asthma, uncomplicated; Z88.5 Allergy status to narcotic agent; Z88.8 Allergy status to other drugs, medicaments and biological substances; Z79.899 Other long term (current) drug therapy; Z91.030 Bee allergy status; Z88.1 Allergy status to other antibiotic agents; Z88.6 Allergy status to analgesic agent
CPT/HCPCS: 36415; 70450; 74177; 80053; 81001; 83605; 83690; 83735; 84484; 84703; 85025; 85610; 93005; 93010; 96372; 96374; 96375; 99284; J1100; J1200; J1885; J2765; J3030; Q9967